=== PATIENT | male | born 1955 | race Caucasian/White ===

== ENCOUNTER 2016-12-01 19:50 | Emergency (ER) | payer MEDICARE ==
[2016-12-01 20:09] LABS: #Basophils 0.1 thou/uL (0.0-0.2); #Eosinphils 0.2 thou/uL (0.0-0.7); #Lymphocytes 2.4 thou/uL (1.20-3.40); #Monocytes 0.5 thou/uL (0.11-0.59); #Neutrophils 2.8 thou/uL (1.40-6.50); %Basophils 1.2 % (0.0-1.0); %Eosinophils 2.7 % (0.0-10.0); %Monocytes 8.5 % (0.0-10.0); Hematocrit 37.8 % (42.0-52.0); Mean Platelet Volume 6.4 fL (7.4-10.4); Red Blood Cell (RBC) Count 3.79 mill/uL (4.70-6.10); White Blood Cell (WBC) Count 5.9 thou/uL (4.8-10.8)
[2016-12-01 20:16] LABS: PTT 25.9 SEC (22.9-36.1); Prothrombin Time 14.5 SEC (12.0-14.7)
--- NOTE | 2016-12-01 20:23 | RAD ---
AP VIEW OF THE CHEST: 12/01/16 INDICATION: Altered mental status, history of seizures and alcohol intake. COMPARISON: Prior exam dated 08/10/16. FINDINGS: Emphysema is stable. Healed fracture deformity involving the posterior right fourth and fifth ribs a re stable. No acute osseous abnormality is evident. IMPRESSION: No acute cardiopulmonary abnormality. POS: [facility]
[2016-12-01 20:30] LABS: Acetaminophen Less than 6.0 mcg/mL (10.0-30.0); Salicylate Less than 8.0 mg/dL (15.0-30.0)
--- NOTE | 2016-12-01 20:30 | CT ---
NONCONTRAST CT OF THE BRAIN 12/01/16 INDICATION: Altered mental status, possible stroke. Left sided deficits; nonpurposeful movement of the left extr emities. COMPARISON: Prior exam dated 08/10/16. FINDINGS: No acute infarct, hemorrhage or hydrocephalus is present. There is stable remote appearing infarct i nvolving the right MCA distribution. There is mild chronic small vessel white matter ischemic change . Septum pellucidum and third ventricle are midline. Skull and extracranial soft tissues are within normal limits. There is mild mucosal thickening within the ethmoid air cells. IMPRESSION: 1. No acute intracranial abnormality. 2. Remote appearing right MCA distribution infarct is stable to the prior. 3. Mild paranasal sinus disease. POS: [facility]
[2016-12-01 20:35] LABS: Troponin I Less than 0.010 ng/mL (< 0.028)
[2016-12-01 20:38] LABS: ALT (SGPT) 17 U/L (8-55); AST (SGOT) 23 U/L (5-34); Alkaline Phosphatase 84 U/L (40-150); Anion Gap 18 mmol/L (10-20); BUN (Urea Nitrogen) 7 mg/dL (8.4-25.7); Bilirubin, Total 0.3 mg/dL (0.2-1.2); CK (CPK) 32 U/L (30-200); Calc. Creatinine Clearance 0 mL/min (70-130); Calcium 8.4 mg/dL (7.8-10.44); Carbon Dioxide 19 mmol/L (23-31); Chloride 99 mmol/L (98-107); Estimated GFR-MDRD Greater than 90; Globulin 3.5 g/dL (2.4-3.5); Protein, Total 7.2 g/dL (5.8-8.1)
== END 2016-12-01 21:55 | disposition home or self-care (01) ==
LOC: ERS 19:50
DX: R56.9 Unspecified convulsions (principal); F17.210 Nicotine dependence, cigarettes, uncomplicated; Z86.73 Personal history of transient ischemic attack (TIA), and cerebral infarction without residual deficits
CPT/HCPCS: 36415; 36416; 70450; 71010; 80053; 80307; 82550; 82553; 84484; 85025; 85610; 85730; 93005

== ENCOUNTER 2018-10-21 21:15 | Observation (INO) | payer MEDICARE ==
[2018-10-21 22:58] LABS: Troponin I Less than 0.010 ng/mL (< 0.028)
[2018-10-22] MEDS ORDERED: Ondansetron PF 4 MG/2 ML Vial IVP PRN (00:06)
[2018-10-22] MEDS ORDERED: Acetaminophen 325 MG TAB PO PRN (00:06)
[2018-10-22] MEDS ORDERED: Ondansetron ODT 4 MG TAB SL PRN (00:06)
[2018-10-22 00:11] VITALS: BMI 21.1
[2018-10-22] MEDS ORDERED: Nitroglycerin 0.4 MG TAB (25 Tab Bottle) PO PRN (00:51)
[2018-10-22] MEDS ORDERED: Lorazepam 0.5 MG TAB PO PRN (00:55)
[2018-10-22] MEDS ORDERED: Sodium Chloride 0.9% 1,000 ML IV SCH (01:00)
[2018-10-22] MEDS ORDERED: levETIRAcetam 500 mg/5 ml Oral Solution PO SCH ×2 (01:00→09:00)
--- NOTE | 2018-10-22 01:53 | HP ---
CHIEF COMPLAINT: Chest pain. HISTORY OF PRESENT ILLNESS: The patient is a pleasant 63-year-old male with past medical history significant for remote MO approximately 10 years ago, unknown type, prior CVA x2 with resulting seizure disorder and mild left-sided weakness, two pack per day current smoking habit and ongoing COPD, and chronic alcoholism, who presented to the [place] [facility] with complaints of chest discomfort. The patient states that he had been out working on his truck and came inside when his symptoms began. He describes discomfort in the center of his chest with radiation to the back. Associated symptoms included nausea. He had no associated shortness of breath, dizziness, or palpitations. He states his symptoms lasted for about 30 minutes. His called EMS, who drove him to the nearest emergency department. Workup in [place] included chest x-ray, which was negative for acute cardiopulmonary process. His initial troponin was negative. EKG showed no acute ST or T-wave changes. Labwork significant for sodium level of 128, which patient has had on previous visits. The patient cannot recall if his CP resolved on its own or if he was given something by EMS that relieved his pain. The patient does state that he had an MO after his first stroke, which occurred approximately 10 years ago. He does not remember the circumstances surrounding his MO or if he saw a assistant associate professor at that time. The patient is currently not on aspirin as he stopped it on his own. He is not currently on a statin medication. REVIEW OF SYSTEMS: A 12-point review of systems performed is negative except that stated above. PAST MEDICAL HISTORY: Hypertension, COPD with ongoing two pack per day smoking habit, CVA x2 with residual left-sided weakness and seizure disorder, chronic alcoholism and history of hyponatremia, history of GI bleed on Plavix. PAST SURGICAL HISTORY: Esophageal diverticulum fixation/repair, tongue biopsy which was benign. SOCIAL HISTORY: The patient reports that he drinks 6-9 beers per day. He denies any illicit drug use. He does currently smoke two packs per day of cigarettes and has smoked for the past 30 years. He lives with his in [place]. He has been for about 25 years, he states. He has children from previous marriage. FAMILY HISTORY: No history of MO, diabetes, or coronary artery disease in first-degree relatives. ALLERGIES: NO KNOWN DRUG ALLERGIES. MEDICATIONS: 1. Keppra 750 mg p.o. b.i.d. 2. Lisinopril 5 mg daily. PRIMARY CARE PHYSICIAN: Dr. Mary in [place]. PHYSICAL EXAMINATION: VITAL SIGNS: Blood pressure is 161/75, pulse is 52, O2 saturation is 98% on room air, temperature is 97.7. GENERAL: This patient is a thin male, resting comfortably in bed, in no acute distress. He does appear older than his stated age. HEENT: Head is atraumatic and normocephalic. Mucous membranes are moist. NECK: Trachea is midline. No JVD. CV: S1 and S2. No appreciable murmurs, rubs, or gallops. Regular rate and rhythm. LUNGS: Occasional rhonchi, no appreciable wheezes or crackles. Regular respiratory rate and pattern, overall decreased vesicular breath sounds bilaterally. ABDOMEN: Positive bowel sounds. Soft, nontender. EXTREMITIES: No edema. SKIN: Warm and dry. NEUROLOGIC: The patient has some residual left-sided weakness from previous CVA. No new deficits. LABORATORY DATA: White blood cell count is 7, hemoglobin 12.4, hematocrit 34.8, platelet count is 222. Sodium 128, potassium 3.9, carbon dioxide 19, BUN 8, creatinine 0.82. Troponin negative x2. AST 25, ALT 11, alkaline phosphatase 54. ASSESSMENT: 1. Chest pain in a patient with numerous risk factors including hypertension, tobacco abuse and previous myocardial infarction, acute coronary syndrome ruled out. 2. Previous myocardial infarction, unknown type. 3. History of cerebrovascular accident x2. 4. Chronic alcoholism. 5. 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 6. Chronic obstructive pulmonary disease with ongoing tobacco abuse, currently two pack per day habit. 7. Hypertension. 8. History of gastrointestinal bleed on Plavix. PLAN: Given the patient's risk factors, we will further risk stratify the patient with nuclear stress test to be performed tomorrow. We will provide gentle IV fluid resuscitation and recheck BMP in the morning. We will also check a fasting lipid panel. Given the patient's previous history of CVA and MO, I have restarted the patient's daily aspirin and statin medication. The patient has no contraindications to these medications that I can see and he does state that he was tolerating his aspirin before he stopped it on his own. I have added thiamine supplementation , as well as p.r.n. Ativan. Further recommendations based on findings of noninvasive testing. Job ID: [id number] [facility]
[2018-10-22 02:02] LABS: Troponin I Less than 0.010 ng/mL (< 0.028)
[2018-10-22 04:37] LABS: Anion Gap 14 mmol/L (10-20); BUN (Urea Nitrogen) 6 mg/dL (8.4-25.7); Calc. Creatinine Clearance 86 mL/min (70-130); Calcium 8.8 mg/dL (7.8-10.44); Carbon Dioxide 20 mmol/L (23-31); Cardiac Risk 3.2 (Less than 4.5); Chloride 100 mmol/L (98-107); Cholesterol 164 mg/dl (< 200 Desired); Estimated GFR-MDRD Greater than 90; Glucose 80 mg/dL (80-115); HDL Cholesterol 52 mg/dL (>60 Neg Risk); LDL Cholesterol, Calculated 89 mg/dL; Potassium 3.9 mmol/L (3.5-5.1); Sodium 130 mmol/L (136-145); Triglycerides 116 mg/dL (Less than 150)
[2018-10-22] MEDS ORDERED: LEVETIRACETAM 750 MG PO SCH (09:00)
[2018-10-22] MEDS ORDERED: Lisinopril 5 MG TAB PO SCH (09:00)
[2018-10-22] MEDS ORDERED: Thiamine 100 MG TAB PO SCH (09:00)
[2018-10-22] MEDS ORDERED: Aspirin 81 mg Enteric Coated Tablet PO SCH (09:00)
[2018-10-22 12:14] VITALS: BP 180/77; TEMP 98.3
[2018-10-22] MEDS ORDERED: Regadenoson 0.4 MG/5 ML SYRINGE ONE (13:54)
--- NOTE | 2018-10-22 14:17 | NM ---
MYOCARDIAL PERFUSION SCAN: The patient was given 10 mCi of Technetium sestamibi for rest imaging and 31 mCi for stress imaging. INDICATION: Chest pain. The patient was stressed according to LexiScan protocol. The left ventricle was imaged with SPECT imaging with CT attenuation. FINDINGS: There is symmetric activity seen on both stress and rest images. There is loss of activity I the sep nura on both stress and rest images. Wall motion appears normally maintained. Ejection fraction is recorded at 69%. IMPRESSION: No evidence of reversible ischemia. POS: [facility]
[2018-10-22] MEDS ORDERED: Atorvastatin Calcium 20 MG TAB PO SCH (21:00)
== END 2018-10-22 14:56 | disposition home or self-care (01) ==
LOC: ERS 21:15 → 2SW 23:57
PROVIDERS: ADMIT Internal Medicine; ATTEND Internal Medicine
DX: R07.89 Other chest pain (principal); I25.2 Old myocardial infarction; I69.354 Hemiplegia and hemiparesis following cerebral infarction affecting left non-dominant side; F10.20 Alcohol dependence, uncomplicated; E87.1 Hypo-osmolality and hyponatremia; J44.9 Chronic obstructive pulmonary disease, unspecified; I10 Essential (primary) hypertension; G40.909 Epilepsy, unspecified, not intractable, without status epilepticus; F17.210 Nicotine dependence, cigarettes, uncomplicated; Z79.899 Other long term (current) drug therapy
CPT/HCPCS: 78452; 80048; 80061; 84484 ×2; 93017; 96360; 96361; 99285; A9500; G0378 ×2; 36415; J2785

== ENCOUNTER 2019-09-24 19:25 | Observation (INO) | payer MEDICARE ==
[~2019-09-24 19:25] MED LIST: Iopamidol-370 76% 500 ML 1 ML ONE
[2019-09-24 19:41] LABS: #Basophils 0.1 thou/uL (0.0-0.2); #Eosinphils 0.1 thou/uL (0.0-0.7); #Lymphocytes 2.9 thou/uL (1.20-3.40); #Monocytes 0.6 thou/uL (0.11-0.59); #Neutrophils 3.1 thou/uL (1.40-6.50); %Basophils 1.3 % (0.0-1.0); %Lymphocytes 42.5 % (21.0-51.0); %Monocytes 8.2 % (0.0-10.0); %Neutrophils 46.1 % (42.0-75.0); Hemoglobin 13.8 g/dL (14.0-18.0); Mean Corpuscular HGB CONC 35.9 g/dL (32.0-36.0); Mean Corpuscular Hemoglobin 34.4 pg (27.0-31.0); Mean Corpuscular Volume 95.8 fL (78.0-98.0); Platelet Count 205 thou/uL (130-400); RBC Distribution Width 11.3 % (11.5-14.5); Red Blood Cell (RBC) Count 4.01 mill/uL (4.70-6.10); White Blood Cell (WBC) Count 6.7 thou/uL (4.8-10.8)
--- NOTE | 2019-09-24 19:47 | CT ---
CT HEAD WITHOUT CONTRAST: 09/24/19 INDICATIONS: Stroke protocol. Left side paralysis with aphasia. COMPARISON: Comparisons made to prior CT of 12/01/16. FINDINGS: Ventricles have normal size and position. Large area of encephalomalacia in the right cerebral hemisphere again noted involving the right tempo ral and frontal lobe consistent with an old infarct. This is stable from 2017. No evidence of acute cortical infarct. No mass, hemorrhage, or edema identified. Mild chronic ischemi c white matter changes. IMPRESSION: No evidence of acute process. Findings were relayed to Dr. Mcdermott at 7:37 p.m. POS: [facility]
[2019-09-24 19:48] LABS: INR-International Normal Ratio 1.1; PTT 26.3 sec (22.9-36.1); Prothrombin Time 14.1 sec (12.0-14.7)
[2019-09-24 19:55] LABS: ALT (SGPT) 10 U/L (8-55); AST (SGOT) 20 U/L (5-34); Albumin 3.9 g/dL (3.4-4.8); Alkaline Phosphatase 51 U/L (40-110); Anion Gap 13 mmol/L (10-20); BUN (Urea Nitrogen) 7 mg/dL (8.4-25.7); Bilirubin, Total 0.3 mg/dL (0.2-1.2); CK (CPK) 46 U/L (30-200); Calc. Creatinine Clearance 0 mL/min (70-130); Calcium 8.9 mg/dL (7.8-10.44); Carbon Dioxide 23 mmol/L (23-31); Chloride 100 mmol/L (98-107); Estimated GFR-MDRD Greater than 90; Globulin 3.4 g/dL (2.4-3.5); Glucose 85 mg/dL (80-115); Potassium 3.8 mmol/L (3.5-5.1); Protein, Total 7.3 g/dL (5.8-8.1); Sodium 132 mmol/L (136-145)
[2019-09-24 20:07] LABS: Acetaminophen Less than 6.0 mcg/mL (10.0-30.0); Alcohol 150 mg/dL (Less than 10); Salicylate Less than 8.0 mg/dL (15.0-30.0)
[2019-09-24 20:12] LABS: Bilirubin Negative (Negative); Blood, Urine Negative (Negative); Clarity Clear (Clear); Glucose, Urine (Dipstick) Normal (Negative); Ketone, Urine Negative (Negative); Leukocyte Negative Leu/uL (Negative); Nitrite Negative (Negative); Protein, Urine (Dipstick) Negative (Neg-Trace); Specific Gravity, Urine 1.007 (1.002-1.036); Urobilinogen Normal mg/dL (Less than 2)
--- NOTE | 2019-09-24 20:17 | CT ---
CTA HEAD WITH CONTRAST: 09/24/19 Axial tomograms obtained following angio protocol with multiplanar reconstructions and 3D postprocess ing. INDICATIONS: Stroke protocol. New left sided weakness. FINDINGS: The intracranial internal carotid arteries are patent and symmetric. The anterior cerebral arteries are patent and symmetric. M1 segment of both middle cerebral arteries are patent and symmetric. Ther e is a large area of encephalomalacia in the right cerebral hemisphere indicating a remote right MCA territory infarct. There is no evidence of proximal or major branch occlusion on the right. The right M2 and M3 branches are decreased in the parasylvian region. Basilar arteries are patent. Both posterior cerebral arteries appear patent and symmetric. IMPRESSION: No evidence of proximal cerebral artery stenosis or occlusion. CTA NECK: Axial tomograms obtained with multiplanar reconstruction and 3D postprocessing. INDICATIONS: Stroke protocol. FINDINGS: No evidence of stenosis at the origin of the arch vessels. Both common carotid arteries are patent an d symmetric. Mild atherosclerotic change seen at the bulbs bilaterally; however, there is no stenosis seen in either internal carotid artery. Vertebral arteries are both patent. There is a mildly domina nt left vertebral. IMPRESSION: Unremarkable CTA neck. POS: [facility]
[2019-09-24 20:21] LABS: Amphetamine Not Detected (NotDetected); Barbiturates Screen Not Detected (NotDetected); Benzodiazepine Screen Not Detected (NotDetected); Cocaine Metabolite Screen Not Detected (NotDetected); Medtox Control Line Valid? VALID (VALID); Medtox Reader # READER 4; Methadone Not Detected (NotDetected); Methamphetamine Not Detected (NotDetected); Opiate Screen Not Detected (NotDetected); Oxycodone Screen Not Detected (NotDetected); Phencyclidine (PCP) Not Detected (NotDetected); THC/Cannabinoid Screen Not Detected (NotDetected); Tricyclic Screen Not Detected (NotDetected)
[2019-09-24] MEDS ORDERED: Aspirin Chewable 81 MG TAB ONE (21:23)
[2019-09-24 23:05] VITALS: BMI 22.1
[2019-09-25] MEDS ORDERED: Diazepam 5 MG TAB PO PRN (01:54)
[2019-09-25] MEDS ORDERED: Thiamine HCl 200 MG/2 ML VIAL IM SCH (02:00)
[2019-09-25] MEDS ORDERED: Diazepam 5 MG TAB PO SCH (02:00)
--- NOTE | 2019-09-25 02:46 | HP ---
TIME OF ASSESSMENT: 0100 hours. PRIMARY CARE PHYSICIAN: DAVID Stein. CHIEF COMPLAINT: Left-sided weakness. HISTORY OF PRESENT ILLNESS: Mr. Burroughs is a 64-year-old gentleman who presented to the emergency department yesterday evening after developing sudden onset of left-sided weakness at approximately 6 p.m. The patient states he had weakness in his left upper extremity and left lower extremity. He states his symptoms began to improve and were nearly resolved by 10:00 p.m. he continues to have some mild residual weakness in the left hand, but it has improved significantly compared to when he first came in. The patient has a history of CVAs in the past and states this was not as bad as previously. He denies any slurred speech or vision changes. No headaches. No dizziness. Has not had any fall. Has not had any issues with his swallowing. ED COURSE: In the emergency department, he underwent an EKG that showed normal sinus rhythm with a heart rate of 62. No ST changes or T-wave abnormalities. He had a CT of the head done showing no evidence of acute process. He has a large area of encephalomalacia in the right cerebral hemisphere involving the right temporal and frontal lobe consistent with an old infarct and appears stable when compared to the imaging done in 2017. He has mild chronic ischemic white matter changes. He underwent a CT angiogram of the head and neck showing no evidence of proximal cerebral artery stenosis or occlusion and an unremarkable evaluation of the neck. LABORATORY STUDIES: Showed white count of 6.7, hemoglobin 13.8, hematocrit 38.4, platelets 205, neutrophils 46.1%. Sodium 132, potassium 3.8, BUN 7, creatinine 0.84, GFR greater than 90. LFTs unremarkable. Troponin negative. CK 46. Urinalysis unremarkable. Urine drug screen negative. Plasma alcohol elevated at 150. In the ED, the patient was given 324 mg of aspirin and admitted for further monitoring and workup. PAST MEDICAL HISTORY: 1. Hypertension. 2. COPD. 3. History of CVA x2. 4. History of NH. 5. History of seizures. 6. Heavy alcohol use. PAST SURGICAL HISTORY: 1. Esophageal pocket surgical fixation. 2. Tongue biopsy, benign. SOCIAL HISTORY: The patient lives at home with family. He drinks every day up to 6 pack a day of beer. Per ED note, he has more than 10 drinks a day. The patient is a smoker and has smoked 1.5 packs per day for the last 30 years. FAMILY HISTORY: Noncontributory. ALLERGIES: NO KNOWN DRUG ALLERGIES. CURRENT MEDICATIONS: 1. Aspirin 81 mg p.o. daily. 2. Keppra 750 mg p.o. twice daily. 3. Albuterol inhaler one puff every 4 hours p.r.n. PHYSICAL EXAMINATION: GENERAL: The patient appears somewhat disheveled, is resting comfortably in bed and is in no acute distress. VITAL SIGNS: Temperature 97.8, pulse 51, respirations 14, O2 saturation 96% on room air, blood pressure 150/76. HEENT: Normocephalic and atraumatic. Pupils are equal, round, and reactive to light. Sclerae icterus. Oropharynx is clear. NECK: Supple. LUNGS: Clear to auscultation bilaterally without any wheezes, rales, or rhonchi. CARDIAC: Regular rate and rhythm. ABDOMEN: Soft, nontender, nondistended. Normoactive bowel sounds present. No guarding or rigidity. No renal angle tenderness. EXTREMITIES: No lower leg swelling or edema. NEUROLOGIC: Alert and oriented x3. Speech is normal. Facial movements and facial sensation intact, mildly reduced strength in the left hand. Otherwise, power is intact as well as sensation in all extremities. Normal coordination. SKIN: Warm and dry. INVESTIGATIONS: As mentioned above in HPI. IMPRESSION AND PLAN: Mr. Burroughs is a 64-year-old gentleman who is being admitted for management of the followin. Cerebrovascular accident rule out. The patient with sudden onset of left-sided weakness and numbness this evening. The patient states symptoms are close to fully resolved, but he has some mild residual weakness involving the left hand. The patient otherwise without complaints at present. Consultation has been placed to neuro and we have ordered an echo as well as an MRI of the brain. Continue to monitor. 2. Hypertension. Monitor blood pressure. 3. History of myocardial infarction. The patient on baby aspirin. This was increased to 325 mg daily given concern for cerebrovascular accident. 4. Seizure disorder. Resume Keppra. We will check Keppra level with morning labs. 5. Chronic obstructive pulmonary disease. We will albuterol, which he takes at home. Monitor O2 saturations. 6. Gastrointestinal prophylaxis with famotidine. 7. Deep venous thrombosis prophylaxis with mechanical sequential compression devices. 8. Code status full. 9. Surrogate decision maker is his , Kelsea Burroughs. The patient's case discussed with attending who agrees with plan of care as described above. Job ID: [id number]
[2019-09-25] MEDS: Sodium Chloride 0.9% 1,000 ML IV SCH ×2 (03:11→21:36)
[2019-09-25 05:21] LABS: #Basophils 0.1 thou/uL (0.0-0.2); #Eosinphils 0.2 thou/uL (0.0-0.7); #Monocytes 0.4 thou/uL (0.11-0.59); #Neutrophils 2.2 thou/uL (1.40-6.50); %Basophils 1.1 % (0.0-1.0); %Eosinophils 4.4 % (0.0-10.0); %Monocytes 8.7 % (0.0-10.0); %Neutrophils 44.8 % (42.0-75.0); Hemoglobin 14.1 g/dL (14.0-18.0); Mean Corpuscular Hemoglobin 33.3 pg (27.0-31.0); Mean Corpuscular Volume 97.8 fL (78.0-98.0); Mean Platelet Volume 6.9 fL (7.4-10.4); Platelet Count 191 thou/uL (130-400); RBC Distribution Width 11.5 % (11.5-14.5); Red Blood Cell (RBC) Count 4.23 mill/uL (4.70-6.10); White Blood Cell (WBC) Count 4.8 thou/uL (4.8-10.8)
[2019-09-25 05:42] LABS: Anion Gap 10 mmol/L (10-20); BUN (Urea Nitrogen) 9 mg/dL (8.4-25.7); Calc. Creatinine Clearance 80 mL/min (70-130); Carbon Dioxide 25 mmol/L (23-31); Cardiac Risk 3.7 (Less than 4.5); Chloride 105 mmol/L (98-107); Cholesterol 164 mg/dl (< 200 Desired); Estimated GFR-MDRD Greater than 90; Glucose 98 mg/dL (80-115); HDL Cholesterol 44 mg/dL (>60 Neg Risk); LDL Cholesterol, Calculated 108 mg/dL; Potassium 4.1 mmol/L (3.5-5.1); Sodium 136 mmol/L (136-145); Triglycerides 62 mg/dL (Less than 150)
[2019-09-25] MEDS: Folic Acid 1 MG TAB PO SCH (09:20)
[2019-09-25] MEDS: levETIRAcetam 500 mg/5 ml Oral Solution PO SCH ×2 (09:20→21:36)
[2019-09-25] MEDS: Aspirin 325 mg Enteric Coated Tablet PO SCH (09:20)
[2019-09-25] MEDS: Multivitamin W/ Minerals 1 TAB PO SCH (09:20)
[2019-09-25] MEDS: Famotidine/PF 20 mg/2ml Vial SLOW IVP SCH ×2 (09:21→21:36)
--- NOTE | 2019-09-25 10:01 | MRI ---
EXAM: MRI of the brain without contrast HISTORY: Left-sided paralysis and ectasia COMPARISON: 08/11/2016 TECHNIQUE: Multiplanar multisequence MR images were obtained of the brain without IV contrast. FINDINGS: There is a stable area of encephalomalacia from prior right MCA distribution infarction within the ri ght temporal lobe and parietal lobe. There are scattered foci of high T2/FLAIR signal in the subcortical and periventricular white matter, likely secondary to small vessel ischemic disease. No restricted diffusion. No hydronephrosis. No extra-axial fluid collection or intracranial hemorrhage. The expected flow voids are present. Corpus callosum, pituitary, and craniocervical junction are within normal limits. The calvarium and overlying soft tissues are unremarkable. The paranasal sinuses and mastoid air cells are well aerated. IMPRESSION: 1. No evidence of acute intracranial abnormality. 2. Remote right MCA distribution infarction
--- NOTE | 2019-09-25 10:47 | PDOC.HOSPP ---
- Subjective Encounter Date: 09/25/19 Encounter Time: 10:45 Subjective: Patient denies any complaints. States he slept well overnight. Has noted complete improvement in the left hand weakness that he was still experiencing when I saw him. - Objective Vital Signs & Weight: Vital Signs (12 hours) Temp Pulse Resp BP Pulse Ox 09/25/19 08:00 97.8 F 53 L 22 H 164/74 H 97 09/25/19 03:39 97.6 F 58 L 18 150/74 H 94 L 09/25/19 00:05 97.4 F L 55 L 16 135/74 94 L Weight Weight 141 lb 1.6 oz I&O: 09/24/19 09/25/19 09/26/19 06:59 06:59 06:59 Intake Total 1054 Output Total 1000 Balance 54 Result Diagrams: 09/25/19 05:11 09/25/19 05:11 Additional Labs: Accuchecks 09/24/19 19:33 POC Glucose 88 Hospitalist ROS - Medication Medications: Active Medications Generic Name Dose Route Start Last Admin Trade Name Freq PRN Reason Stop Dose Admin Aspirin 325 mg 09/25/19 09:00 09/25/19 09:20 Ecotrin PO 325 mg DAILY HANNAH Administration Famotidine 20 mg 09/25/19 09:00 09/25/19 09:21 Pepcid SLOW IVP 20 mg Q12HR HANNAH Administration Folic Acid 1 mg 09/25/19 09:00 09/25/19 09:20 Folvite PO 1 mg DAILY HANNAH Administration Sodium Chloride 1,000 mls @ 65 mls/hr 09/25/19 02:00 09/25/19 03:11 Normal Saline 0.9% IV 1,000 mls .[id number] HANNAH Administration Iron/Minerals/Multivitamins 1 tab 09/25/19 09:00 09/25/19 09:20 Theragran M PO 1 tab DAILY HANNAH Administration Levetiracetam 750 mg 09/25/19 09:00 09/25/19 09:20 Keppra Oral Solution PO 750 mg BID HANNAH Administration Sodium Chloride 10 ml 09/25/19 01:49 09/25/19 09:23 Flush - Normal Saline IVF 10 ml Q12HR PRN Administration Saline Flush
--- NOTE | 2019-09-25 10:49 | PDOC.EVN ---
Event Note - Event Note Event Note: Patient reports residual left hand weakness from earlier this morning has fully improved. He has gotten a lot of rest and denies any complaints at present. S/p MRI brain: Remote right MCA distribution infarction, no acute intracranial abnormality. Seen by Dr. Echeverria this am. Awaiting Echo.
--- NOTE | 2019-09-25 12:47 | CON ---
NEUROLOGY CONSULTATION DATE OF CONSULTATION: 09/25/2019 REASON FOR CONSULTATION: Acute onset left-sided weakness and speech deficit. HISTORY OF PRESENT ILLNESS: Mr. Burroughs is a 64-year-old gentleman who presented to the emergency room because of acute onset left-sided weakness with speech issues and problems with speech around 6 p.m. yesterday on 09/24/2019. His symptoms began to improve and nearly resolved at 10 p.m. but he has mild residual weakness of the left hand which was more than usual from his prior CVA. The patient denies any focal paresthesias, nausea, vomiting, headache, dizziness, vertigo, chest pain, or abdominal pain associated with problems with swallowing associated with this episode. However, he does have some problem with speech. In the emergency room , the EKG was done which showed normal sinus rhythm. He also had a head CT done which was negative for acute intracranial pathology, but did show large area of encephalomalacia in the right cerebral hemisphere involving the right temporal and frontal lobe with an old infarct, which appears to be stable when compared to the prior CT scan in 2017. The patient also underwent CT angiogram of the head and neck, which did not reveal any hemodynamically significant stenosis. Labs were essentially unremarkable. In the emergency room, he was given aspirin and was admitted for further workup. REVIEW OF SYSTEMS: All 10-systems were reviewed and were negative except pertinent positive and negative mentioned in the HPI. PAST MEDICAL HISTORY: Hypertension, COPD, history of cerebrovascular accidents x2, history of multiple SC, history of seizures, and history of alcohol abuse. PAST SURGICAL HISTORY: Esophageal pocket surgical fixation, tongue biopsies. SOCIAL HISTORY: The patient lives at home with his family. Drinks about six packs of beers a day. Also smoked 1.5 packs per day for the last 30 years. FAMILY HISTORY: No family history of stroke. ALLERGIES: NO KNOWN DRUG ALLERGIES. MEDICATION: 1. Aspirin 81 mg daily. 2. Keppra 750 mg twice daily. 3. Albuterol inhaler one puff p.r.n. - Objective Vital Signs & Weight: Vital Signs (12 hours) Temp Pulse Resp BP Pulse Ox 09/25/19 08:00 97.8 F 53 L 22 H 164/74 H 97 09/25/19 03:39 97.6 F 58 L 18 150/74 H 94 L 09/25/19 00:05 97.4 F L 55 L 16 135/74 94 L Weight Weight 141 lb 1.6 oz I&O: 09/24/19 09/25/19 09/26/19 06:59 06:59 06:59 Intake Total 1054 Output Total 1000 Balance 54 Additional Labs: Accuchecks 09/24/19 19:33 POC Glucose 88 Active Medications Generic Name Dose Route Start Last Admin Trade Name Freq PRN Reason Stop Dose Admin Aspirin 325 mg 09/25/19 09:00 09/25/19 09:20 Ecotrin PO 325 mg DAILY HANNAH Administration Famotidine 20 mg 09/25/19 09:00 09/25/19 09:21 Pepcid SLOW IVP 20 mg Q12HR HANNAH Administration Folic Acid 1 mg 09/25/19 09:00 09/25/19 09:20 Folvite PO 1 mg DAILY HANNAH Administration Sodium Chloride 1,000 mls @ 65 mls/hr 09/25/19 02:00 09/25/19 03:11 Normal Saline 0.9% IV 1,000 mls .[id number] HANNAH Administration Iron/Minerals/Multivitamins 1 tab 09/25/19 09:00 09/25/19 09:20 Theragran M PO 1 tab DAILY HANNAH Administration Levetiracetam 750 mg 09/25/19 09:00 09/25/19 09:20 Keppra Oral Solution PO 750 mg BID HANNAH Administration Sodium Chloride 10 ml 09/25/19 01:49 09/25/19 09:23 Flush - Normal Saline IVF 10 ml Q12HR PRN Administration Saline Flush PHYSICAL EXAMINATION: CVS: Regular rate and rhythm. CHEST: Clear. ABDOMEN: Soft. NECK: No carotid bruit. NEUROLOGIC: Mental status, the patient is alert and oriented to person, place, and time. He does have receptive aphasia. Speech is dysarthric. Motor, muscle tone and bulk are normal. Strength is 5/5 bilaterally except left wrist, which is 4+/five. Sensory intact. Cerebellar, finger-nose testing intact. Cranial nerves 2 through 12 are intact except the dysarthria. Gait deferred due to patient's safety reasons. ASSESSMENT AND PLAN: Mr. Glenn Burroughs is consulted for an episode of left-sided weakness, which resolved on its own, most likely transient ischemic attack. Recommend MRI of the brain to rule out acute intracranial process. Recommend 2D echo to evaluate for left ventricular ejection fraction. Permissive control of blood pressure at this time. The patient was on aspirin 81 mg daily. Consider increasing it to 325 mg daily. Continue Keppra for seizure prophylaxis. Neuro checks every 4 hours, telemetry. Continue home medications. Continue medical management per Primary team. Plan discussed with the patient and the floor team during the MDR rounds. Job ID: [id number] [facility]
[2019-09-25] MEDS ORDERED: Atorvastatin Calcium 40 MG TAB PO SCH (21:00)
[2019-09-26] MEDS ORDERED: Diazepam 5 MG TAB PO PRN (04:00)
[2019-09-26 08:23] VITALS: BP 158/75; TEMP 97.2
[2019-09-26] MEDS: Multivitamin W/ Minerals 1 TAB PO SCH (08:58)
[2019-09-26] MEDS: Folic Acid 1 MG TAB PO SCH (08:58)
[2019-09-26] MEDS: Aspirin 325 mg Enteric Coated Tablet PO SCH (08:58)
[2019-09-26] MEDS: Famotidine/PF 20 mg/2ml Vial SLOW IVP SCH (08:59)
[2019-09-26] MEDS ORDERED: Magnesium Oxide 400 MG TAB PO SCH (09:00)
[2019-09-26] MEDS ORDERED: Thiamine 100 MG TAB PO SCH (09:00)
[2019-09-26] MEDS: levETIRAcetam 500 mg/5 ml Oral Solution PO SCH (09:05)
[2019-09-26] MEDS: Sodium Chloride 0.9% 1,000 ML IV SCH (11:22)
--- NOTE | 2019-09-27 05:38 | DIS ---
DATE OF ADMISSION: 09/24/2019 DATE OF DISCHARGE: 09/26/2019 REASON FOR HOSPITALIZATION: Left-sided weakness. PROCEDURES PERFORMED AND TREATMENTS RENDERED: The patient was admitted to the Stroke unit for close management. The patient had all appropriate radiographic and laboratory data for a stroke rule-out, please see full chart for details. The patient had an MRI of the brain. Please see full radiographic report for details. There were signs of old right middle cerebral artery cerebrovascular accident without acute infarction. The patient had an echocardiogram, which shows preserved ejection fraction of 55% with no obvious structural abnormalities. The patient had a CT angiography of the head and neck that was negative for hemodynamically significant stenosis. The patient's laboratory data and metabolic workup were benign. The patient's blood pressure was on the high side, and I recommended starting lisinopril. Lisinopril will have both blood pressure benefits in addition to reducing his chance for future cerebrovascular accidents/thromboembolic events. The patient was started on a regimen of aspirin 325 mg and atorvastatin. The patient was seen and evaluated by Neurology, please see full consultation note for details. Neurology was agreeing with workup and recommended continuing Keppra for seizure prophylaxis as his home medication. The patient was recommended safe for discharge with close followup in the outpatient setting. CONDITION ON DISCHARGE: Stable. SPECIFIC INSTRUCTIONS FOR THE PATIENT/FAMILY: 1. The patient is recommended to follow up with primary care physician in the next 1 to 2 weeks. 2. The patient is recommended to follow up with Neurology in the next 2 to 4 weeks. 3. The patient recommended to take a stroke regimen that was sent to his preferred pharmacy for his convenience. 4. The patient recommended to take all other home medications as directed. Greater than 35 minutes spent coordinating care and discharge process. Job ID: [id number]
== END 2019-09-26 12:06 | disposition home or self-care (01) ==
LOC: ERS 19:25 → INTOOBSV 21:16 → 2SE 21:16
PROVIDERS: ADMIT Internal Medicine; ATTEND Internal Medicine
DX: R53.1 Weakness (principal); I10 Essential (primary) hypertension; J44.9 Chronic obstructive pulmonary disease, unspecified; F17.210 Nicotine dependence, cigarettes, uncomplicated; G40.909 Epilepsy, unspecified, not intractable, without status epilepticus; I25.2 Old myocardial infarction; Z79.82 Long term (current) use of aspirin; Z79.899 Other long term (current) drug therapy; Z86.73 Personal history of transient ischemic attack (TIA), and cerebral infarction without residual deficits
CPT/HCPCS: 36415; 36416; 70450; 70496; 70498; 70551; 80048; 80053; 80061; 80177; 80306; 80307; 81003; 82550; 84484; 85025; 85610; 85730; 93005; 93306; 96374; G0378; J3411; J3475; J3490; Q9967; S0028

== ENCOUNTER 2020-02-26 17:48 | Inpatient (IN) | payer MEDICARE ==
[2020-02-26] MEDS ORDERED: Albuterol 200 PUFF (6.7GM INHALER) INH PRN (19:56)
[2020-02-26] MEDS ORDERED: Acetaminophen 325 MG TAB PO PRN (20:00)
[2020-02-26] MEDS ORDERED: Ondansetron ODT 4 MG TAB SL PRN (20:00)
[2020-02-26] MEDS ORDERED: Ondansetron PF 4 MG/2 ML Vial IVP PRN (20:00)
[2020-02-26] MEDS ORDERED: Albuterol 200 PUFF (6.7GM INHALER) INH SCH (21:00)
[2020-02-26] MEDS ORDERED: Labetalol HCl 100 MG/20 ML VIAL SLOW IVP PRN (21:01)
[2020-02-26] MEDS ORDERED: hydrALAZINE 20 MG/ML VIAL SLOW IVP PRN (21:01)
--- NOTE | 2020-02-26 21:24 | PDOC.HHP ---
Hospitalist HPI - History of Present Illness History of Present Illness: ADMISSION DATE: 02/26/2020 TIME OF ASSESSMENT: 2044 PRIMARY CARE PHYSICIAN: Jace CHIEF COMPLAINT: Shortness of breath HPI: Patient is a 64-year-old male past medical history significant for COPD and hypertension. He presents to the ER today for shortness of breath. He was recently discharged from the hospital last week for COPD exacerbation. He saw his primary care physician on Saturday for similar complaints and was doing better at that time but began to worsen last night with dyspnea coughing. Denies any sputum production, no fever, no known sick contacts, chest pain, GI symptoms, urinary symptoms. ED COURSE: Vital Signs: Blood pressure 126/73, pulse 82, respiratory rate 20, temp 98.0 oral, 98% on 2 L Patient had lab work completed, chest x-ray, EKG, medication administration. He had Zithromax 500 mg IV, aspirin 324 mg oral, magnesium sulfate 2 g IV, Rocephin 1 g IV, Solu-Medrol 125 mg IV, DuoNeb 3 mL. PAST MEDICAL HISTORY: COPD, hypertension, seizure disorder, alcohol abuse, tobacco abuse PAST SURGICAL HISTORY: Esophageal surgery, tongue biopsy SOCIAL HISTORY: Patient lives at home with his and grandson. He currently smokes 4 to 5 cigarettes/day, a few weeks ago he was smoking as much as a few packs per day. He drinks daily and has not had a drink in 24 hours. He has decreased from drinking a sixpack a day to 3 beers a day. He denies any drug use. FAMILY HISTORY: Noncontributory to this day ALLERGIES: No known drug allergies CURRENT MEDICATIONS: Lisinopril 5 mg Aspirin 325 mg Pravastatin 40 mg Albuterol as needed Levetiracetam 750 mg twice a day Hospitalist ROS - Review of Systems Respiratory: reports: cough, shortness of breath All other systems reviewed; all pertinent +/- noted in HPI/Subj - Exam General Appearance: NAD, awake alert General - other findings: Woodall stained from tobacco use ENT: normocephalic atraumatic Neck: supple Heart: RRR, no murmur, no gallops, no rubs, normal peripheral pulses Respiratory: normal chest expansion, no tachypnea, rhonchi Gastrointestinal: soft, non-tender, non-distended, normal bowel sounds Extremities: no edema Neurological: no focal deficits Psychiatric: normal affect, normal behavior, A&O x 3 Hospitalist Results - Labs Lab results: Laboratory Tests 02/26/20 02/26/20 02/26/20 15:11 15:11 15:11 WBC RBC Hgb Hct Sodium 141 Potassium 4.3 BUN 10 Creatinine 0.87 Estimated GFR (MDRD) 88 Glucose 108 Lactic Acid 2.2 Troponin I Less than 0.010 02/26/20 15:11 WBC 8.5 RBC 4.53 L Hgb 14.7 Hct 42.7 Sodium Potassium BUN Creatinine Estimated GFR (MDRD) Glucose Lactic Acid Troponin I - Radiology Interpretation Chest x-ray Status: image reviewed by me, report reviewed by me Additional Comment: Findings: Heart size is normal. Changes of COPD are again seen. Lungs are well-expanded without focal areas of consolidation, pneumothorax, or pleural effusions. Old right-sided rib fractures noted. Impression: No radiographic evidence of acute cardiopulmonary process. Hospitalist H&P A/P - Plan Plan: Acute hypoxic respiratory failure Patient currently on 2 L of oxygen Continue oxygen as needed and wean as tolerated Recent negative Covid test COPD exacerbation Currently on scheduled DuoNebs Continue IV steroids scheduled Continue IV antibiotics Hypertension Resume patient's home antihypertensives As needed antihypertensives available Vital signs every 4 hours Seizure disorder Home medications be resumed once reconciled Tobacco abuse Nicotine patch available Counseling has been provided Alcohol abuse Patient admits to heavy alcohol use in the past Last drink was approximately 1 to 2 days ago Initiate ASE protocol DVT prophylaxis: SCDs CODE STATUS: Full Surrogate decision-maker is his
[2020-02-26] MEDS ORDERED: methylPREDNISolone Sod Succ/PF 125 MG/2 ML VIAL IVP SCH (22:00)
[2020-02-26] MEDS: Bacteriostatic Water 30 ML VIAL FS PRN (23:47)
[2020-02-26] MEDS: methylPREDNISolone Sod Succ 40 MG VIAL IVP SCH (23:53)
[2020-02-27 02:12] LABS: SARS-CoV-2 MS2 Positive; SARS-CoV-2 N Gene Negative; SARS-CoV-2 S Gene Negative; SARS-CoV-2 by NAA Not Detected (NotDetected); SARS-CoV-2 orf1ab Negative
[2020-02-27] MEDS ORDERED: Albuterol 200 PUFF (6.7GM INHALER) INH SCH (02:30)
[2020-02-27 06:22] LABS: #Lymphocytes 0.8 thou/uL (1.20-3.40); #Monocytes 0.1 thou/uL (0.11-0.59); #Neutrophils 7.2 thou/uL (1.40-6.50); %Basophils 0.2 % (0.0-1.0); %Eosinophils 0.1 % (0.0-10.0); %Lymphocytes 10.3 % (21.0-51.0); %Monocytes 0.9 % (0.0-10.0); %Neutrophils 88.5 % (42.0-75.0); Hemoglobin 13.3 g/dL (14.0-18.0); Mean Corpuscular Hemoglobin 32.9 pg (27.0-31.0); Mean Corpuscular Volume 96.6 fL (78.0-98.0); Platelet Count 226 thou/uL (130-400); RBC Distribution Width 10.7 % (11.5-14.5); Red Blood Cell (RBC) Count 4.04 mill/uL (4.70-6.10); White Blood Cell (WBC) Count 8.2 thou/uL (4.8-10.8)
[2020-02-27] MEDS: methylPREDNISolone Sod Succ 40 MG VIAL IVP SCH ×4 (06:23→18:17)
[2020-02-27] MEDS: Bacteriostatic Water 30 ML VIAL FS PRN (06:24)
[2020-02-27 06:34] LABS: Anion Gap 18 mmol/L (10-20); BUN (Urea Nitrogen) 16 mg/dL (8.4-25.7); Calc. Creatinine Clearance 65 mL/min (70-130); Calcium 8.7 mg/dL (7.8-10.44); Carbon Dioxide 17 mmol/L (23-31); Chloride 106 mmol/L (98-107); Glucose 129 mg/dL (80-115); Potassium 4.9 mmol/L (3.5-5.1); Sodium 136 mmol/L (136-145)
[2020-02-27] MEDS: Nicotine 21 MG PATCH TD SCH (10:05)
--- NOTE | 2020-02-27 14:09 | PDOC.HOSPP ---
- Subjective Encounter Date: 02/27/20 Subjective: The patient stated that her shortness of breath is improving. - Objective Vital Signs & Weight: Vital Signs (12 hours) Temp Pulse Resp BP Pulse Ox 02/27/20 11:18 98.0 F 75 18 156/79 H 93 L 02/27/20 08:00 93 L 02/27/20 07:57 98.0 F 67 18 130/77 93 L 02/27/20 04:00 97.9 F 71 18 117/60 92 L Weight Weight 130 lb 3 oz Result Diagrams: 02/27/20 06:11 02/27/20 06:11 Hospitalist ROS - Medication Medications: Active Medications Generic Name Dose Route Start Last Admin Trade Name Freq PRN Reason Stop Dose Admin Methylprednisolone Sodium Succinate 40 mg 02/26/20 23:59 02/27/20 12:57 Methylprednisolone Sod Succ 40 Mg Vial IVP 40 mg Q6HR HANNAH Administration Nicotine 21 mg 02/27/20 09:00 02/27/20 10:05 Nicotine 21 Mg Patch TD Not Given DAILY HANNAH Sterile Water 1 ml 02/26/20 20:00 02/27/20 06:24 Bacteriostatic Water 30 Ml Vial FS 1 ml PRN PRN Administration RECONSTITUTION - Exam General Appearance: awake alert ENT: normocephalic atraumatic Neck: supple, no JVD Heart: RRR Respiratory: normal chest expansion, no tachypnea, wheezes Gastrointestinal: soft Neurological: cranial nerve grossly intact, no new deficit Hosp A/P (1) Acute and chronic respiratory failure with hypoxia Code(s): J96.21 - ACUTE AND CHRONIC RESPIRATORY FAILURE WITH HYPOXIA Status: Acute (2) COPD exacerbation Code(s): J44.1 - CHRONIC OBSTRUCTIVE PULMONARY DISEASE W (ACUTE) EXACERBATION Status: Acute (3) Epilepsy Code(s): G40.909 - EPILEPSY, UNSP, NOT INTRACTABLE, WITHOUT STATUS EPILEPTICUS Status: Chronic (4) TIA (transient ischemic attack) Status: Resolved - Plan The patient is feeling better. He still wheezing on examination. Continue supplemental oxygen as needed. Continue scheduled nebulizer treatments, antibiotics, and corticosteroids.
[2020-02-27] MEDS ORDERED: Acetaminophen 325 MG TAB PO PRN (14:51)
[2020-02-27] MEDS ORDERED: Albuterol Sulfate 1.25 MG/3 ML NEB NEB PRN (14:52)
[2020-02-27] MEDS: cefTRIAXone\\ROCEPHIN 1 GM in Sodium Chloride 0.9% 100 ML IVPB SCH (15:28)
[2020-02-27] MEDS: Azithromycin 500 MG in Sodium Chloride 0.9% 250 ML 250 ML IVPB SCH (16:34)
[2020-02-27] MEDS: Atorvastatin Calcium 40 MG TAB PO SCH (20:47)
[2020-02-27] MEDS: levETIRAcetam 500 MG TAB PO SCH (20:47)
[2020-02-27] MEDS: guaiFENesin ER 600 MG TAB PO SCH (20:48)
[2020-02-28] MEDS: methylPREDNISolone Sod Succ 40 MG VIAL IVP SCH ×3 (00:26→21:36)
[2020-02-28 07:35] LABS: Anion Gap 12 mmol/L (10-20); BUN (Urea Nitrogen) 23 mg/dL (8.4-25.7); Calc. Creatinine Clearance 79 mL/min (70-130); Calcium 8.7 mg/dL (7.8-10.44); Carbon Dioxide 25 mmol/L (23-31); Chloride 104 mmol/L (98-107); Glucose 120 mg/dL (80-115); Potassium 4.3 mmol/L (3.5-5.1); Sodium 137 mmol/L (136-145)
[2020-02-28 07:40] LABS: Band 3 % (5-11); Hemoglobin 13.3 g/dL (14.0-18.0); Lymphocytes 12 % (21-51); MDiff Complete? YES; Mean Corpuscular HGB CONC 34.1 g/dL (32.0-36.0); Mean Corpuscular Hemoglobin 33.1 pg (27.0-31.0); Mean Corpuscular Volume 97.2 fL (78.0-98.0); Mean Platelet Volume 7.1 fL (7.4-10.4); Monocytes 2 % (0-10); Neutrophil 83 % (42-75); Platelet Count 230 thou/uL (130-400); RBC Distribution Width 10.7 % (11.5-14.5); Red Blood Cell (RBC) Count 4.02 mill/uL (4.70-6.10); White Blood Cell (WBC) Count 22.2 thou/uL (4.8-10.8)
[2020-02-28] MEDS: Aspirin 325 mg Enteric Coated Tablet PO SCH (08:00)
[2020-02-28] MEDS: Lisinopril 5 MG TAB PO SCH (08:00)
[2020-02-28] MEDS: Nicotine 21 MG PATCH TD SCH (08:00)
[2020-02-28] MEDS ORDERED: predniSONE 20 MG TAB PO SCH (08:00)
[2020-02-28] MEDS: Magnesium Oxide 400 MG TAB PO SCH (08:00)
[2020-02-28] MEDS: guaiFENesin ER 600 MG TAB PO SCH ×2 (08:01→21:36)
[2020-02-28] MEDS: levETIRAcetam 500 MG TAB PO SCH ×2 (08:01→21:36)
[2020-02-28] MEDS: Multivit, Therapeutic 1 TAB PO SCH (08:02)
[2020-02-28] MEDS: Thiamine 100 MG TAB PO SCH (08:02)
[2020-02-28] MEDS: Folic Acid 1 MG TAB PO SCH (08:03)
[2020-02-28] MEDS: cefTRIAXone\\ROCEPHIN 1 GM in Sodium Chloride 0.9% 100 ML IVPB SCH (14:43)
[2020-02-28] MEDS: Azithromycin 500 MG in Sodium Chloride 0.9% 250 ML 250 ML IVPB SCH (16:29)
--- NOTE | 2020-02-28 17:45 | PDOC.HOSPP ---
- Subjective Encounter Date: 02/28/20 Subjective: Still complaining of SOB wheezing. - Objective Vital Signs & Weight: Vital Signs (12 hours) Temp Pulse Resp BP BP Pulse Ox 02/28/20 15:10 97.6 F 63 16 127/74 94 L 02/28/20 12:00 126/78 02/28/20 11:22 97.7 F 72 18 126/78 93 L 02/28/20 11:06 92 L 02/28/20 08:05 66 02/28/20 08:00 59 L 143/79 H 92 L 02/28/20 07:00 98 F 59 L 16 143/79 H 95 Weight Weight 130 lb 3 oz Result Diagrams: 02/28/20 06:53 02/28/20 06:53 Hospitalist ROS - Medication Medications: Active Medications Generic Name Dose Route Start Last Admin Trade Name Freq PRN Reason Stop Dose Admin Aspirin 325 mg 02/28/20 09:00 02/28/20 08:00 Aspirin 325 Mg Enteric Coated Tablet PO 325 mg DAILY HANNAH Administration Atorvastatin Calcium 40 mg 02/27/20 21:00 02/27/20 20:47 Atorvastatin Calcium 40 Mg Tab PO 40 mg HS HANNAH Administration Folic Acid 1 mg 02/28/20 09:00 02/28/20 08:03 Folic Acid 1 Mg Tab PO 1 mg DAILY HANNAH Administration Guaifenesin 1,200 mg 02/27/20 21:00 02/28/20 08:01 Guaifenesin Er 600 Mg Tab PO 1,200 mg Q12HR HANNAH Administration Azithromycin 500 mg/ Sodium 250 mls @ 250 mls/hr 02/27/20 17:00 02/28/20 16:29 Chloride IVPB 250 mls Q24HR HANNAH Administration Ceftriaxone Sodium 1 gm/ 100 mls @ 200 mls/hr 02/27/20 15:30 02/28/20 14:43 Sodium Chloride IVPB 100 mls Q24HR HANNAH Administration Levetiracetam 750 mg 02/27/20 21:00 02/28/20 08:01 Levetiracetam 500 Mg Tab PO 750 mg BID HANNAH Administration Lisinopril 5 mg 02/28/20 09:00 02/28/20 08:00 Lisinopril 5 Mg Tab PO 5 mg DAILY HANNAH Administration Magnesium Oxide 400 mg 02/28/20 09:00 02/28/20 08:00 Magnesium Oxide 400 Mg Tab PO 400 mg DAILY HANNAH Administration Multivitamins 1 tab 02/28/20 09:00 02/28/20 08:02 Multivit, Therapeutic 1 Tab PO 1 tab DAILY HANNAH Administration Nicotine 21 mg 02/27/20 09:00 02/28/20 08:00 Nicotine 21 Mg Patch TD Not Given DAILY HANNAH Sterile Water 1 ml 02/26/20 20:00 02/27/20 06:24 Bacteriostatic Water 30 Ml Vial FS 1 ml PRN PRN Administration RECONSTITUTION Thiamine HCl 100 mg 02/28/20 09:00 02/28/20 08:02 Thiamine 100 Mg Tab PO 100 mg DAILY HANNAH Administration - Exam General Appearance: awake alert ENT: normocephalic atraumatic Neck: supple Heart: RRR Respiratory: normal chest expansion, no tachypnea, wheezes Neurological: cranial nerve grossly intact, no focal deficits Hosp A/P (1) Acute and chronic respiratory failure with hypoxia Code(s): J96.21 - ACUTE AND CHRONIC RESPIRATORY FAILURE WITH HYPOXIA Status: Acute (2) COPD exacerbation Code(s): J44.1 - CHRONIC OBSTRUCTIVE PULMONARY DISEASE W (ACUTE) EXACERBATION Status: Acute (3) Epilepsy Code(s): G40.909 - EPILEPSY, UNSP, NOT INTRACTABLE, WITHOUT STATUS EPILEPTICUS Status: Chronic (4) TIA (transient ischemic attack) Status: Resolved - Plan Hypoxia is improving. Less wheezing on examination. Continue supplemental oxygen as needed. Continue scheduled nebulizer treatments, antibiotics, and corticosteroids.
[2020-02-28] MEDS: Atorvastatin Calcium 40 MG TAB PO SCH (21:36)
[2020-02-29 05:57] LABS: #Lymphocytes 0.9 thou/uL (1.20-3.40); #Monocytes 0.4 thou/uL (0.11-0.59); #Neutrophils 13.7 thou/uL (1.40-6.50); %Basophils 0.2 % (0.0-1.0); %Lymphocytes 5.9 % (21.0-51.0); %Monocytes 2.5 % (0.0-10.0); %Neutrophils 91.4 % (42.0-75.0); Hemoglobin 13.8 g/dL (14.0-18.0); Mean Corpuscular HGB CONC 33.5 g/dL (32.0-36.0); Mean Corpuscular Hemoglobin 32.8 pg (27.0-31.0); Mean Corpuscular Volume 97.8 fL (78.0-98.0); Mean Platelet Volume 7.2 fL (7.4-10.4); Platelet Count 232 thou/uL (130-400); RBC Distribution Width 10.6 % (11.5-14.5); Red Blood Cell (RBC) Count 4.19 mill/uL (4.70-6.10); White Blood Cell (WBC) Count 14.9 thou/uL (4.8-10.8)
[2020-02-29 06:19] LABS: Anion Gap 11 mmol/L (10-20); BUN (Urea Nitrogen) 27 mg/dL (8.4-25.7); Calc. Creatinine Clearance 73 mL/min (70-130); Carbon Dioxide 27 mmol/L (23-31); Chloride 105 mmol/L (98-107); Glucose 113 mg/dL (80-115); Potassium 5.3 mmol/L (3.5-5.1); Sodium 138 mmol/L (136-145)
[2020-02-29] MEDS: methylPREDNISolone Sod Succ 40 MG VIAL IVP SCH ×2 (08:30→20:55)
[2020-02-29] MEDS: Magnesium Oxide 400 MG TAB PO SCH (08:31)
[2020-02-29] MEDS: levETIRAcetam 500 MG TAB PO SCH ×2 (08:31→20:55)
[2020-02-29] MEDS: Lisinopril 5 MG TAB PO SCH (08:31)
[2020-02-29] MEDS: Folic Acid 1 MG TAB PO SCH (08:31)
[2020-02-29] MEDS: Thiamine 100 MG TAB PO SCH (08:31)
[2020-02-29] MEDS: Nicotine 21 MG PATCH TD SCH (08:32)
[2020-02-29] MEDS: guaiFENesin ER 600 MG TAB PO SCH ×2 (08:32→20:55)
[2020-02-29] MEDS: Aspirin 325 mg Enteric Coated Tablet PO SCH (08:32)
[2020-02-29] MEDS: Multivit, Therapeutic 1 TAB PO SCH (08:32)
--- NOTE | 2020-02-29 10:46 | PDOC.HOSPP ---
- Subjective Encounter Date: 02/29/20 Encounter Time: 10:44 Subjective: feels 'tough'. sob allthe time - Objective Vital Signs & Weight: Vital Signs (12 hours) BP Pulse Ox 02/29/20 08:31 137/75 02/28/20 23:00 93 L Weight Weight 130 lb 3 oz Result Diagrams: 02/29/20 05:32 02/29/20 05:32 Hospitalist ROS - Medication Medications: Active Medications Generic Name Dose Route Start Last Admin Trade Name Alda PRN Reason Stop Dose Admin Aspirin 325 mg 02/28/20 09:00 02/29/20 08:32 Aspirin 325 Mg Enteric Coated Tablet PO 325 mg DAILY HANNAH Administration Atorvastatin Calcium 40 mg 02/27/20 21:00 02/28/20 21:36 Atorvastatin Calcium 40 Mg Tab PO 40 mg HS HANNAH Administration Folic Acid 1 mg 02/28/20 09:00 02/29/20 08:31 Folic Acid 1 Mg Tab PO 1 mg DAILY HANNAH Administration Guaifenesin 1,200 mg 02/27/20 21:00 02/29/20 08:32 Guaifenesin Er 600 Mg Tab PO 1,200 mg Q12HR HANNAH Administration Azithromycin 500 mg/ Sodium 250 mls @ 250 mls/hr 02/27/20 17:00 02/28/20 16:29 Chloride IVPB 250 mls Q24HR HANNAH Administration Levetiracetam 750 mg 02/27/20 21:00 02/29/20 08:31 Levetiracetam 500 Mg Tab PO 750 mg BID HANNAH Administration Lisinopril 5 mg 02/28/20 09:00 02/29/20 08:31 Lisinopril 5 Mg Tab PO 5 mg DAILY HANNAH Administration Magnesium Oxide 400 mg 02/28/20 09:00 02/29/20 08:31 Magnesium Oxide 400 Mg Tab PO 400 mg DAILY HANNAH Administration Methylprednisolone Sodium Succinate 40 mg 02/28/20 21:00 02/29/20 08:30 Methylprednisolone Sod Succ 40 Mg Vial IVP 40 mg Q12HR HANNAH Administration Multivitamins 1 tab 02/28/20 09:00 02/29/20 08:32 Multivit, Therapeutic 1 Tab PO 1 tab DAILY HANNAH Administration Nicotine 21 mg 02/27/20 09:00 02/29/20 08:32 Nicotine 21 Mg Patch TD Not Given DAILY HANNAH Sterile Water 1 ml 02/26/20 20:00 02/27/20 06:24 Bacteriostatic Water 30 Ml Vial FS 1 ml PRN PRN Administration RECONSTITUTION Thiamine HCl 100 mg 02/28/20 09:00 02/29/20 08:31 Thiamine 100 Mg Tab PO 100 mg DAILY HANNAH Administration - Exam General Appearance: awake alert Neck: no JVD Heart: RRR, no murmur Respiratory - other findings: decreased BS, insperatory/expiratory wheezes, diffuse rhonchi Gastrointestinal: soft, normal bowel sounds Extremities: no edema Hosp A/P (1) COPD exacerbation Code(s): J44.1 - CHRONIC OBSTRUCTIVE PULMONARY DISEASE W (ACUTE) EXACERBATION Status: Acute (2) Acute and chronic respiratory failure with hypoxia Code(s): J96.21 - ACUTE AND CHRONIC RESPIRATORY FAILURE WITH HYPOXIA Status: Acute (3) HTN (hypertension) Code(s): I10 - ESSENTIAL (PRIMARY) HYPERTENSION Status: Acute Qualifiers: Hypertension type: essential hypertension Qualified Code(s): I10 - Essential (primary) hypertension (4) Tobacco abuse Code(s): Z72.0 - TOBACCO USE Status: Chronic (5) Epilepsy Code(s): G40.909 - EPILEPSY, UNSP, NOT INTRACTABLE, WITHOUT STATUS EPILEPTICUS Status: Chronic Qualifiers: Epilepsy type: unspecified Intractability: not intractable Status epilepticus: without status epilepticus Qualified Code(s): G40.909 - Epilepsy, unspecified, not intractable, without status epilepticus - Plan cont iv steroids cont nebs cont O2 supplementatio add inhaled LABA selected home meds suspect will be slow to clear no history off outpatient O2
[2020-02-29] MEDS: Azithromycin 500 MG in Sodium Chloride 0.9% 250 ML 250 ML IVPB SCH (17:35)
[2020-02-29] MEDS: Mometasone 200 MCG/Formoterol 5 MCG 120 PUFF INHALER INH SCH (19:12)
[2020-02-29] MEDS: Atorvastatin Calcium 40 MG TAB PO SCH (20:55)
[2020-03-01 06:11] LABS: #Lymphocytes 1.1 thou/uL (1.20-3.40); #Monocytes 0.4 thou/uL (0.11-0.59); #Neutrophils 10.3 thou/uL (1.40-6.50); %Basophils 0.1 % (0.0-1.0); %Lymphocytes 9.6 % (21.0-51.0); %Neutrophils 87.2 % (42.0-75.0); Hemoglobin 13.9 g/dL (14.0-18.0); Mean Corpuscular HGB CONC 32.8 g/dL (32.0-36.0); Mean Corpuscular Hemoglobin 31.8 pg (27.0-31.0); Mean Corpuscular Volume 96.8 fL (78.0-98.0); Mean Platelet Volume 7.6 fL (7.4-10.4); Platelet Count 227 thou/uL (130-400); RBC Distribution Width 10.6 % (11.5-14.5); Red Blood Cell (RBC) Count 4.36 mill/uL (4.70-6.10); White Blood Cell (WBC) Count 11.8 thou/uL (4.8-10.8)
[2020-03-01 06:27] LABS: Anion Gap 9 mmol/L (10-20); BUN (Urea Nitrogen) 23 mg/dL (8.4-25.7); Calc. Creatinine Clearance 89 mL/min (70-130); Calcium 8.8 mg/dL (7.8-10.44); Carbon Dioxide 29 mmol/L (23-31); Chloride 103 mmol/L (98-107); Glucose 108 mg/dL (80-115); Potassium 4.3 mmol/L (3.5-5.1); Sodium 137 mmol/L (136-145)
[2020-03-01] MEDS: Mometasone 200 MCG/Formoterol 5 MCG 120 PUFF INHALER INH SCH (07:09)
--- NOTE | 2020-03-01 08:55 | PDOC.HOSPP ---
- Subjective Encounter Date: 03/01/20 Encounter Time: 08:53 Subjective: less cough, still with marked HERRING - Objective Vital Signs & Weight: Vital Signs (12 hours) Temp Pulse Resp BP BP Pulse Ox 03/01/20 08:18 97.9 F 54 L 20 132/78 92 L 03/01/20 04:00 97.8 F 50 L 20 151/88 H 94 L 03/01/20 00:00 97.9 F 54 L 20 145/83 H 92 L Weight Weight 130 lb 3 oz I&O: 02/29/20 03/01/20 03/02/20 06:59 06:59 06:59 Intake Total 1450 Balance 1450 Result Diagrams: 03/01/20 05:25 03/01/20 05:25 Hospitalist ROS - Medication Medications: Active Medications Generic Name Dose Route Start Last Admin Trade Name Freq PRN Reason Stop Dose Admin Aspirin 325 mg 02/28/20 09:00 02/29/20 08:32 Aspirin 325 Mg Enteric Coated Tablet PO 325 mg DAILY HANNAH Administration Atorvastatin Calcium 40 mg 02/27/20 21:00 02/29/20 20:55 Atorvastatin Calcium 40 Mg Tab PO 40 mg HS HANNAH Administration Folic Acid 1 mg 02/28/20 09:00 02/29/20 08:31 Folic Acid 1 Mg Tab PO 1 mg DAILY HANNAH Administration Guaifenesin 1,200 mg 02/27/20 21:00 02/29/20 20:55 Guaifenesin Er 600 Mg Tab PO 1,200 mg Q12HR HANNAH Administration Azithromycin 500 mg/ Sodium 250 mls @ 250 mls/hr 02/27/20 17:00 02/29/20 17:35 Chloride IVPB 250 mls Q24HR HANNAH Administration Levetiracetam 750 mg 02/27/20 21:00 02/29/20 20:55 Levetiracetam 500 Mg Tab PO 750 mg BID HANNAH Administration Lisinopril 5 mg 02/28/20 09:00 02/29/20 08:31 Lisinopril 5 Mg Tab PO 5 mg DAILY HANNAH Administration Magnesium Oxide 400 mg 02/28/20 09:00 02/29/20 08:31 Magnesium Oxide 400 Mg Tab PO 400 mg DAILY HANNAH Administration Methylprednisolone Sodium Succinate 40 mg 02/28/20 21:00 02/29/20 20:55 Methylprednisolone Sod Succ 40 Mg Vial IVP 40 mg Q12HR HANNAH Administration Mometasone Furoate/Formoterol Fumar 1 puff 02/29/20 18:30 03/01/20 07:09 Mometasone 200 Mcg/Formoterol 5 Mcg 120 Puff Inhaler INH 1 puff BID-RT HANNAH Administration Multivitamins 1 tab 02/28/20 09:00 02/29/20 08:32 Multivit, Therapeutic 1 Tab PO 1 tab DAILY HANNAH Administration Nicotine 21 mg 02/27/20 09:00 02/29/20 08:32 Nicotine 21 Mg Patch TD Not Given DAILY HANNAH Sterile Water 1 ml 02/26/20 20:00 02/27/20 06:24 Bacteriostatic Water 30 Ml Vial FS 1 ml PRN PRN Administration RECONSTITUTION Thiamine HCl 100 mg 02/28/20 09:00 02/29/20 08:31 Thiamine 100 Mg Tab PO 100 mg DAILY HANNAH Administration - Exam General Appearance: awake alert Neck: no JVD Heart: RRR, no murmur Respiratory - other findings: insp/exsp wheezes, rhonchi Gastrointestinal: soft, non-distended, normal bowel sounds Extremities: no edema Hosp A/P (1) COPD exacerbation Code(s): J44.1 - CHRONIC OBSTRUCTIVE PULMONARY DISEASE W (ACUTE) EXACERBATION Status: Acute (2) Acute and chronic respiratory failure with hypoxia Code(s): J96.21 - ACUTE AND CHRONIC RESPIRATORY FAILURE WITH HYPOXIA Status: Acute (3) HTN (hypertension) Code(s): I10 - ESSENTIAL (PRIMARY) HYPERTENSION Status: Acute Qualifiers: Hypertension type: essential hypertension Qualified Code(s): I10 - Essential (primary) hypertension (4) Tobacco abuse Code(s): Z72.0 - TOBACCO USE Status: Chronic (5) Epilepsy Code(s): G40.909 - EPILEPSY, UNSP, NOT INTRACTABLE, WITHOUT STATUS EPILEPTICUS Status: Chronic Qualifiers: Epilepsy type: unspecified Intractability: not intractable Status epilepticus: without status epilepticus Qualified Code(s): G40.909 - Epilepsy, unspecified, not intractable, without status epilepticus - Plan cont iv steroids cont nebs cont O2 supplementatio cont inhaled LABA selected home meds suspect will be slow to clear no history off outpatient O2
[2020-03-01] MEDS: Lisinopril 5 MG TAB PO SCH (09:00)
[2020-03-01] MEDS: Aspirin 325 mg Enteric Coated Tablet PO SCH (09:13)
[2020-03-01] MEDS: levETIRAcetam 500 MG TAB PO SCH ×2 (09:13→21:30)
[2020-03-01] MEDS: Multivit, Therapeutic 1 TAB PO SCH (09:13)
[2020-03-01] MEDS: Magnesium Oxide 400 MG TAB PO SCH (09:13)
[2020-03-01] MEDS: Folic Acid 1 MG TAB PO SCH (09:13)
[2020-03-01] MEDS: Nicotine 21 MG PATCH TD SCH (09:14)
[2020-03-01] MEDS: guaiFENesin ER 600 MG TAB PO SCH ×2 (09:14→21:29)
[2020-03-01] MEDS: methylPREDNISolone Sod Succ 40 MG VIAL IVP SCH ×2 (09:14→21:31)
[2020-03-01] MEDS: Thiamine 100 MG TAB PO SCH (09:14)
[2020-03-01] MEDS: Azithromycin 500 MG in Sodium Chloride 0.9% 250 ML 250 ML IVPB SCH (18:00)
[2020-03-01] MEDS: Atorvastatin Calcium 40 MG TAB PO SCH (21:30)
[2020-03-02] MEDS: Mometasone 200 MCG/Formoterol 5 MCG 120 PUFF INHALER INH SCH ×3 (01:48→19:05)
[2020-03-02 06:34] LABS: #Lymphocytes 1.1 thou/uL (1.20-3.40); #Monocytes 0.4 thou/uL (0.11-0.59); #Neutrophils 8.9 thou/uL (1.40-6.50); %Basophils 0.2 % (0.0-1.0); %Eosinophils 0.2 % (0.0-10.0); %Lymphocytes 10.2 % (21.0-51.0); %Monocytes 4.1 % (0.0-10.0); %Neutrophils 85.4 % (42.0-75.0); Mean Corpuscular HGB CONC 34.2 g/dL (32.0-36.0); Mean Corpuscular Hemoglobin 33.2 pg (27.0-31.0); Mean Platelet Volume 7.8 fL (7.4-10.4); Platelet Count 219 thou/uL (130-400); RBC Distribution Width 10.5 % (11.5-14.5); Red Blood Cell (RBC) Count 4.53 mill/uL (4.70-6.10); White Blood Cell (WBC) Count 10.4 thou/uL (4.8-10.8)
[2020-03-02 07:02] LABS: Anion Gap 13 mmol/L (10-20); BUN (Urea Nitrogen) 21 mg/dL (8.4-25.7); Calc. Creatinine Clearance 89 mL/min (70-130); Calcium 8.7 mg/dL (7.8-10.44); Carbon Dioxide 24 mmol/L (23-31); Chloride 103 mmol/L (98-107); Glucose 110 mg/dL (80-115); Potassium 4.3 mmol/L (3.5-5.1); Sodium 136 mmol/L (136-145)
--- NOTE | 2020-03-02 08:28 | PDOC.HOSPP ---
- Subjective Encounter Date: 03/02/20 Encounter Time: 08:25 Subjective: much less tachycnea, looks more comfortable - Objective Vital Signs & Weight: Vital Signs (12 hours) Temp Pulse Resp BP BP BP Pulse Ox 03/02/20 08:08 98.2 F 61 18 117/75 88 L 03/02/20 08:02 59 L 16 93 L 03/02/20 05:55 92 L 03/02/20 04:00 97.6 F 59 L 18 120/69 120/69 03/02/20 00:00 120/69 Weight Weight 130 lb 3 oz I&O: 03/01/20 03/02/20 03/03/20 06:59 06:59 06:59 Intake Total 1450 1900 Balance 1450 1900 Result Diagrams: 03/02/20 05:48 03/02/20 05:48 Hospitalist ROS - Medication Medications: Active Medications Generic Name Dose Route Start Last Admin Trade Name Freq PRN Reason Stop Dose Admin Aspirin 325 mg 02/28/20 09:00 03/01/20 09:13 Aspirin 325 Mg Enteric Coated Tablet PO 325 mg DAILY HANNAH Administration Atorvastatin Calcium 40 mg 02/27/20 21:00 03/01/20 21:30 Atorvastatin Calcium 40 Mg Tab PO 40 mg HS HANNAH Administration Folic Acid 1 mg 02/28/20 09:00 03/01/20 09:13 Folic Acid 1 Mg Tab PO 1 mg DAILY HANNAH Administration Guaifenesin 1,200 mg 02/27/20 21:00 03/01/20 21:29 Guaifenesin Er 600 Mg Tab PO 1,200 mg Q12HR HANNAH Administration Azithromycin 500 mg/ Sodium 250 mls @ 250 mls/hr 02/27/20 17:00 03/01/20 18:00 Chloride IVPB 250 mls Q24HR HANNAH Administration Levetiracetam 750 mg 02/27/20 21:00 03/01/20 21:30 Levetiracetam 500 Mg Tab PO 750 mg BID HANNAH Administration Lisinopril 5 mg 02/28/20 09:00 03/01/20 09:00 Lisinopril 5 Mg Tab PO 5 mg DAILY HANNAH Administration Magnesium Oxide 400 mg 02/28/20 09:00 03/01/20 09:13 Magnesium Oxide 400 Mg Tab PO 400 mg DAILY HANNAH Administration Methylprednisolone Sodium Succinate 40 mg 02/28/20 21:00 03/01/20 21:31 Methylprednisolone Sod Succ 40 Mg Vial IVP 40 mg Q12HR HANNAH Administration Mometasone Furoate/Formoterol Fumar 1 puff 02/29/20 18:30 03/02/20 08:02 Mometasone 200 Mcg/Formoterol 5 Mcg 120 Puff Inhaler INH 1 puff BID-RT HANNAH Administration Multivitamins 1 tab 02/28/20 09:00 03/01/20 09:13 Multivit, Therapeutic 1 Tab PO 1 tab DAILY HANNAH Administration Nicotine 21 mg 02/27/20 09:00 03/01/20 09:14 Nicotine 21 Mg Patch TD Not Given DAILY HANNAH Sterile Water 1 ml 02/26/20 20:00 02/27/20 06:24 Bacteriostatic Water 30 Ml Vial FS 1 ml PRN PRN Administration RECONSTITUTION Thiamine HCl 100 mg 02/28/20 09:00 03/01/20 09:14 Thiamine 100 Mg Tab PO 100 mg DAILY HANNAH Administration - Exam General Appearance: awake alert Neck: no JVD Heart: RRR, no murmur Respiratory - other findings: inspiratory wheezes dramatically imprved. still has post-basilar wheezes, Gastrointestinal: soft, non-tender, non-distended, normal bowel sounds Extremities: no edema Hosp A/P (1) COPD exacerbation Code(s): J44.1 - CHRONIC OBSTRUCTIVE PULMONARY DISEASE W (ACUTE) EXACERBATION Status: Acute (2) Acute and chronic respiratory failure with hypoxia Code(s): J96.21 - ACUTE AND CHRONIC RESPIRATORY FAILURE WITH HYPOXIA Status: Acute (3) HTN (hypertension) Code(s): I10 - ESSENTIAL (PRIMARY) HYPERTENSION Status: Acute Qualifiers: Hypertension type: essential hypertension Qualified Code(s): I10 - Essentia l (primary) hypertension (4) Tobacco abuse Code(s): Z72.0 - TOBACCO USE Status: Chronic (5) Epilepsy Code(s): G40.909 - EPILEPSY, UNSP, NOT INTRACTABLE, WITHOUT STATUS EPILEPTICUS Status: Chronic Qualifiers: Epilepsy type: unspecified Intractability: not intractable Status epilepticus: without status epilepticus Qualified Code(s): G40.909 - Epilepsy, unspecified, not intractable, without status epilepticus - Plan significant improvement over past 48 hrs cont iv steroids cont nebs cont O2 supplementatio cont inhaled LABA selected home meds suspect will be stable for DC 2-3 dYS no history off outpatient O2
[2020-03-02] MEDS: Multivit, Therapeutic 1 TAB PO SCH (08:30)
[2020-03-02] MEDS: Magnesium Oxide 400 MG TAB PO SCH (08:30)
[2020-03-02] MEDS: levETIRAcetam 500 MG TAB PO SCH ×2 (08:30→21:00)
[2020-03-02] MEDS: Aspirin 325 mg Enteric Coated Tablet PO SCH (08:30)
[2020-03-02] MEDS: Folic Acid 1 MG TAB PO SCH (08:31)
[2020-03-02] MEDS: Lisinopril 5 MG TAB PO SCH (08:31)
[2020-03-02] MEDS: guaiFENesin ER 600 MG TAB PO SCH ×2 (08:31→21:01)
[2020-03-02] MEDS: Thiamine 100 MG TAB PO SCH (08:31)
[2020-03-02] MEDS: methylPREDNISolone Sod Succ 40 MG VIAL IVP SCH ×2 (08:32→21:02)
[2020-03-02] MEDS: Nicotine 21 MG PATCH TD SCH (08:32)
[2020-03-02] MEDS: Azithromycin 500 MG in Sodium Chloride 0.9% 250 ML 250 ML IVPB SCH (16:34)
[2020-03-02] MEDS: Atorvastatin Calcium 40 MG TAB PO SCH (21:01)
[2020-03-03 06:38] LABS: #Lymphocytes 1.3 thou/uL (1.20-3.40); #Monocytes 0.5 thou/uL (0.11-0.59); #Neutrophils 8.3 thou/uL (1.40-6.50); %Basophils 0.2 % (0.0-1.0); %Eosinophils 0.1 % (0.0-10.0); %Lymphocytes 12.9 % (21.0-51.0); %Monocytes 4.8 % (0.0-10.0); %Neutrophils 81.9 % (42.0-75.0); Hemoglobin 15.3 g/dL (14.0-18.0); Mean Corpuscular HGB CONC 33.3 g/dL (32.0-36.0); Mean Corpuscular Hemoglobin 32.4 pg (27.0-31.0); Mean Corpuscular Volume 97.5 fL (78.0-98.0); Mean Platelet Volume 7.9 fL (7.4-10.4); Platelet Count 228 thou/uL (130-400); RBC Distribution Width 10.5 % (11.5-14.5); Red Blood Cell (RBC) Count 4.72 mill/uL (4.70-6.10); White Blood Cell (WBC) Count 10.2 thou/uL (4.8-10.8)
[2020-03-03 07:12] LABS: Anion Gap 11 mmol/L (10-20); BUN (Urea Nitrogen) 25 mg/dL (8.4-25.7); Calc. Creatinine Clearance 83 mL/min (70-130); Calcium 8.6 mg/dL (7.8-10.44); Carbon Dioxide 27 mmol/L (23-31); Chloride 102 mmol/L (98-107); Glucose 105 mg/dL (80-115); Potassium 4.4 mmol/L (3.5-5.1); Sodium 136 mmol/L (136-145)
[2020-03-03] MEDS: Mometasone 200 MCG/Formoterol 5 MCG 120 PUFF INHALER INH SCH ×2 (08:20→18:57)
[2020-03-03] MEDS: Aspirin 325 mg Enteric Coated Tablet PO SCH (08:55)
[2020-03-03] MEDS: levETIRAcetam 500 MG TAB PO SCH ×2 (08:55→20:07)
[2020-03-03] MEDS: guaiFENesin ER 600 MG TAB PO SCH ×2 (08:55→20:07)
[2020-03-03] MEDS: Folic Acid 1 MG TAB PO SCH (08:56)
[2020-03-03] MEDS: Thiamine 100 MG TAB PO SCH (08:56)
[2020-03-03] MEDS: Multivit, Therapeutic 1 TAB PO SCH (08:56)
[2020-03-03] MEDS: Lisinopril 5 MG TAB PO SCH (08:56)
[2020-03-03] MEDS: Magnesium Oxide 400 MG TAB PO SCH (08:56)
[2020-03-03] MEDS: methylPREDNISolone Sod Succ 40 MG VIAL IVP SCH ×2 (08:57→20:08)
[2020-03-03] MEDS: Nicotine 21 MG PATCH TD SCH (08:57)
--- NOTE | 2020-03-03 14:02 | PDOC.HOSPP ---
- Subjective Encounter Date: 03/03/20 Subjective: The patient is still requiring oxygen. He is not appear to be in any distress. - Objective Vital Signs & Weight: Vital Signs (12 hours) Temp Pulse Resp BP BP Pulse Ox 03/03/20 08:30 97.4 F L 52 L 20 114/78 95 03/03/20 08:00 114/78 95 03/03/20 04:00 97.5 F L 55 L 20 106/70 95 Weight Weight 130 lb 3 oz I&O: 03/02/20 03/03/20 03/04/20 06:59 06:59 06:59 Intake Total 1899 1909 360 Balance 1899 1909 360 Result Diagrams: 03/03/20 06:11 03/03/20 06:11 Hospitalist ROS - Medication Medications: Active Medications Generic Name Dose Route Start Last Admin Trade Name Freq PRN Reason Stop Dose Admin Aspirin 325 mg 02/28/20 09:00 03/03/20 08:55 Aspirin 325 Mg Enteric Coated Tablet PO 325 mg DAILY HANNAH Administration Atorvastatin Calcium 40 mg 02/27/20 21:00 03/02/20 21:01 Atorvastatin Calcium 40 Mg Tab PO 40 mg HS HANNAH Administration Folic Acid 1 mg 02/28/20 09:00 03/03/20 08:56 Folic Acid 1 Mg Tab PO 1 mg DAILY HANNAH Administration Guaifenesin 1,200 mg 02/27/20 21:00 03/03/20 08:55 Guaifenesin Er 600 Mg Tab PO 1,200 mg Q12HR HANNAH Administration Azithromycin 500 mg/ Sodium 250 mls @ 250 mls/hr 02/27/20 17:00 03/02/20 16:3 4 Chloride IVPB 250 mls Q24HR HANNAH Administration Levetiracetam 750 mg 02/27/20 21:00 03/03/20 08:55 Levetiracetam 500 Mg Tab PO 750 mg BID HANNAH Administration Lisinopril 5 mg 02/28/20 09:00 03/03/20 08:56 Lisinopril 5 Mg Tab PO 5 mg DAILY HANNAH Administration Magnesium Oxide 400 mg 02/28/20 09:00 03/03/20 08:56 Magnesium Oxide 400 Mg Tab PO 400 mg DAILY HANNAH Administration Methylprednisolone Sodium Succinate 40 mg 02/28/20 21:00 03/03/20 08:57 Methylprednisolone Sod Succ 40 Mg Vial IVP 40 mg Q12HR HANNAH Administration Mometasone Furoate/Formoterol Fumar 1 puff 02/29/20 18:30 03/03/20 08:20 Mometasone 200 Mcg/Formoterol 5 Mcg 120 Puff Inhaler INH 1 puff BID-RT HANNAH Administration Multivitamins 1 tab 02/28/20 09:00 03/03/20 08:56 Multivit, Therapeutic 1 Tab PO 1 tab DAILY HANNAH Administration Nicotine 21 mg 02/27/20 09:00 03/03/20 08:57 Nicotine 21 Mg Patch TD Not Given DAILY HANNAH Sterile Water 1 ml 02/26/20 20:00 02/27/20 06:24 Bacteriostatic Water 30 Ml Vial FS 1 ml PRN PRN Administration RECONSTITUTION Thiamine HCl 100 mg 02/28/20 09:00 03/03/20 08:56 Thiamine 100 Mg Tab PO 100 mg DAILY HANNAH Administration - Exam General Appearance: awake alert ENT: normocephalic atraumatic Neck: supple, no JVD Heart: RRR Respiratory: no tachypnea, rhonchi Gastrointestinal: soft Extremities: no cyanosis Hosp A/P (1) Acute and chronic respiratory failure with hypoxia Code(s): J96.21 - ACUTE AND CHRONIC RESPIRATORY FAILURE WITH HYPOXIA Status: Acute (2) COPD exacerbation Code(s): J44.1 - CHRONIC OBSTRUCTIVE PULMONARY DISEASE W (ACUTE) EXACERBATION Status: Acute (3) Epilepsy Code(s): G40.909 - EPILEPSY, UNSP, NOT INTRACTABLE, WITHOUT STATUS EPILEPTICUS Status: Chronic Qualifiers: Epilepsy type: unspecified Intractability: not intractable Status epilepticus: without status epilepticus Qualified Code(s): G40.909 - Epilepsy, unspecified, not intractable, without status epilepticus (4) TIA (transient ischemic attack) Status: Resolved - Plan Hypoxia is still present. No wheezing on examination but crackles are noted bilaterally. Check chest x-ray. Continue supplemental oxygen as needed. Continue scheduled nebulizer treatments, antibiotics, and corticosteroids.
--- NOTE | 2020-03-03 16:12 | RAD ---
RADIOGRAPH CHEST 1 VIEW: DATE: 03/03/2020 HISTORY: 64-year-old male with hypoxia FINDINGS: There are no airspace densities, pulmonary edema, pneumothorax, or cardiomegaly. The lateral costophr enic angles are sharp. Old right rib fracture deformities. IMPRESSION: No acute cardiopulmonary findings.
[2020-03-03] MEDS: Azithromycin 500 MG in Sodium Chloride 0.9% 250 ML 250 ML IVPB SCH (16:52)
[2020-03-03] MEDS: Atorvastatin Calcium 40 MG TAB PO SCH (20:07)
[2020-03-04 05:53] LABS: #Lymphocytes 1.5 thou/uL (1.20-3.40); #Monocytes 0.7 thou/uL (0.11-0.59); #Neutrophils 10.6 thou/uL (1.40-6.50); %Basophils 0.2 % (0.0-1.0); %Eosinophils 0.1 % (0.0-10.0); %Lymphocytes 11.5 % (21.0-51.0); %Monocytes 5.8 % (0.0-10.0); %Neutrophils 82.4 % (42.0-75.0); Hemoglobin 15.4 g/dL (14.0-18.0); Mean Corpuscular HGB CONC 33.7 g/dL (32.0-36.0); Mean Corpuscular Hemoglobin 32.6 pg (27.0-31.0); Mean Corpuscular Volume 96.8 fL (78.0-98.0); Mean Platelet Volume 7.4 fL (7.4-10.4); Platelet Count 256 thou/uL (130-400); RBC Distribution Width 10.6 % (11.5-14.5); Red Blood Cell (RBC) Count 4.71 mill/uL (4.70-6.10); White Blood Cell (WBC) Count 12.8 thou/uL (4.8-10.8)
[2020-03-04 06:14] LABS: Anion Gap 11 mmol/L (10-20); BUN (Urea Nitrogen) 27 mg/dL (8.4-25.7); Calc. Creatinine Clearance 82 mL/min (70-130); Calcium 8.8 mg/dL (7.8-10.44); Carbon Dioxide 26 mmol/L (23-31); Chloride 101 mmol/L (98-107); Glucose 109 mg/dL (80-115); Potassium 4.5 mmol/L (3.5-5.1); Sodium 133 mmol/L (136-145)
[2020-03-04] MEDS: Mometasone 200 MCG/Formoterol 5 MCG 120 PUFF INHALER INH SCH (07:15)
[2020-03-04 07:37] VITALS: BP 115/74; TEMP 97.8
[2020-03-04] MEDS: Nicotine 21 MG PATCH TD SCH (09:27)
[2020-03-04] MEDS: levETIRAcetam 500 MG TAB PO SCH (09:27)
[2020-03-04] MEDS: guaiFENesin ER 600 MG TAB PO SCH (09:27)
[2020-03-04] MEDS: Magnesium Oxide 400 MG TAB PO SCH (09:27)
[2020-03-04] MEDS: Aspirin 325 mg Enteric Coated Tablet PO SCH (09:28)
[2020-03-04] MEDS: Folic Acid 1 MG TAB PO SCH (09:28)
[2020-03-04] MEDS: Thiamine 100 MG TAB PO SCH (09:28)
[2020-03-04] MEDS: Lisinopril 5 MG TAB PO SCH (09:28)
[2020-03-04] MEDS: Multivit, Therapeutic 1 TAB PO SCH (09:28)
[2020-03-04] MEDS: methylPREDNISolone Sod Succ 40 MG VIAL IVP SCH (09:29)
--- NOTE | 2020-03-04 10:01 | PDOC.HOSPP ---
- Subjective Encounter Date: 03/04/20 Subjective: The patient is resting comfortably. He has no symptoms today. He is saturating 88% on room air. - Objective Vital Signs & Weight: Vital Signs (12 hours) Temp Pulse Resp BP BP Pulse Ox 03/04/20 09:28 64 115/74 03/04/20 07:34 97.8 F 64 20 115/74 03/04/20 05:33 97.9 F 60 16 107/68 94 L Weight Weight 130 lb 3 oz I&O: 03/03/20 03/04/20 03/05/20 06:59 06:59 06:59 Intake Total 1909 1410 Balance 1909 141 Result Diagrams: 03/04/20 05:34 03/04/20 05:34 Hospitalist ROS - Medication Medications: Active Medications Generic Name Dose Route Start Last Admin Trade Name Freq PRN Reason Stop Dose Admin Aspirin 325 mg 02/28/20 09:00 03/04/20 09:28 Aspirin 325 Mg Enteric Coated Tablet PO 325 mg DAILY HANNAH Administration Atorvastatin Calcium 40 mg 02/27/20 21:00 03/03/20 20:07 Atorvastatin Calcium 40 Mg Tab PO 40 mg HS HANNAH Administration Folic Acid 1 mg 02/28/20 09:00 03/04/20 09:28 Folic Acid 1 Mg Tab PO 1 mg DAILY HANNAH Administration Guaifenesin 1,200 mg 02/27/20 21:00 03/04/20 09:27 Guaifenesin Er 600 Mg Tab PO 1,200 mg Q12HR HANNAH Administration Azithromycin 500 mg/ Sodium 250 mls @ 250 mls/hr 02/27/20 17:00 03/03/20 16 :52 Chloride IVPB 250 mls Q24HR HANNAH Administration Levetiracetam 750 mg 02/27/20 21:00 03/04/20 09:27 Levetiracetam 500 Mg Tab PO 750 mg BID HANNAH Administration Lisinopril 5 mg 02/28/20 09:00 03/04/20 09:28 Lisinopril 5 Mg Tab PO 5 mg DAILY HANNAH Administration Magnesium Oxide 400 mg 02/28/20 09:00 03/04/20 09:27 Magnesium Oxide 400 Mg Tab PO 400 mg DAILY HANNAH Administration Methylprednisolone Sodium Succinate 40 mg 02/28/20 21:00 03/04/20 09:29 Methylprednisolone Sod Succ 40 Mg Vial IVP 40 mg Q12HR HANNAH Administration Mometasone Furoate/Formoterol Fumar 1 puff 02/29/20 18:30 03/04/20 07:15 Mometasone 200 Mcg/Formoterol 5 Mcg 120 Puff Inhaler INH 1 puff BID-RT HANNAH Administration Multivitamins 1 tab 02/28/20 09:00 03/04/20 09:28 Multivit, Therapeutic 1 Tab PO 1 tab DAILY HANNAH Administration Nicotine 21 mg 02/27/20 09:00 03/04/20 09:27 Nicotine 21 Mg Patch TD Not Given DAILY HANNAH Sterile Water 1 ml 02/26/20 20:00 02/27/20 06:24 Bacteriostatic Water 30 Ml Vial FS 1 ml PRN PRN Administration RECONSTITUTION Thiamine HCl 100 mg 02/28/20 09:00 03/04/20 09:28 Thiamine 100 Mg Tab PO 100 mg DAILY HANNAH Administration - Exam General Appearance: awake alert ENT: normocephalic atraumatic Heart: RRR Respiratory: normal chest expansion, no tachypnea Extremities: no cyanosis, no clubbing Neurological: cranial nerve grossly intact, no focal deficits Hosp A/P (1) Acute and chronic respiratory failure with hypoxia Code(s): J96.21 - ACUTE AND CHRONIC RESPIRATORY FAILURE WITH HYPOXIA Status: Acute (2) COPD exacerbation Code(s): J44.1 - CHRONIC OBSTRUCTIVE PULMONARY DISEASE W (ACUTE) EXACERBATION Status: Acute (3) Epilepsy Code(s): G40.909 - EPILEPSY, UNSP, NOT INTRACTABLE, WITHOUT STATUS EPILEPTICUS Status: Chronic Qualifiers: Epilepsy type: unspecified Intractability: not intractable Status epilepticus: without status epilepticus Qualified Code(s): G40.909 - Epilepsy, unspecified, not intractable, without status epilepticus (4) TIA (transient ischemic attack) Status: Resolved - Plan The patient COPD exacerbation has now resolved. Chest x-ray appears to be clear. He is still hypoxic at baseline will likely require home O2. We will attempt ambulating O2 study today and if we are able to arrange for O2, we will discharge him home.
--- NOTE | 2020-03-04 11:54 | PDOC.DS.DS ---
Provider - Provider Date of Admission: 02/28/20 10:03 Date of Discharge: 03/04/20 Admitting Provider: James Ryan DO Primary Care Physician: Ludmila Mccormick MD Course - Hospital Course Hospital Course: The patient is a 64-year-old male with past medical history of COPD and hypertension who presented to the ER with complaints of shortness of breath and productive cough. He was admitted to the hospital with impression of COPD exacerbation and was managed with scheduled nebulizer treatments, antibiotics, and corticosteroids leading to improvement of his symptoms and resolution of hypoxia prior to discharge. Resuscitation Status: 02/26/20 20:33 Resuscitation Status Routine Co-Sign Provider: Resuscitation Status: FULL: Full Resuscitation Discussed with: pt - Labs Lab Results: 03/04/20 05:34 03/04/20 05:34 Abnormal Lab Results - Last 48 hrs 03/03/20 06:11: MCH 32.4 H, RDW 10.5 L, Neutrophils % 81.9 H, Lymphocytes % 12.9 L, Neutrophils # 8.3 H 03/04/20 05:34: Sodium 133 L, BUN 27 H 03/04/20 05:34: WBC 12.8 H, MCH 32.6 H, RDW 10.6 L, Neutrophils % 82.4 H, Lymphocytes % 11.5 L, Neutrophils # 10.6 H, Monocytes # 0.7 H - Physical Exam Vitals: Vital Signs (12 hours) Temp Pulse Resp BP BP Pulse Ox 03/04/20 09:28 64 115/74 03/04/20 08:21 115/74 94 L 03/04/20 07:34 97.8 F 64 20 115/74 03/04/20 05:33 97.9 F 60 16 107/68 94 L Weight Weight 130 lb 3 oz Physical Exam: The patient was seen and examined on the day of discharge. Problem - Problem (1) Acute and chronic respiratory failure with hypoxia Code(s): J96.21 - ACUTE AND CHRONIC RESPIRATORY FAILURE WITH HYPOXIA Status: Acute (2) COPD exacerbation Code(s): J44.1 - CHRONIC OBSTRUCTIVE PULMONARY DISEASE W (ACUTE) EXACERBATION Status: Acute (3) Epilepsy Code(s): G40.909 - EPILEPSY, UNSP, NOT INTRACTABLE, WITHOUT STATUS EPILEPTICUS Status: Chronic Qualifiers: Epilepsy type: unspecified Intractability: not intractable Status epilepticus: without status epilepticus Qualified Code(s): G40.909 - Epilepsy, unspecified, not intractable, without status epilepticus (4) TIA (transient ischemic attack) Status: Resolved Plan - Discharge Medications Home Medications: Medication Instructions Recorded Confirmed Type levETIRAcetam [Levetiracetam] 750 mg PO BID 10/22/18 02/27/20 History Acetaminophen [Tylenol Regular 650 mg PO Q4H PRN tab 02/16/20 02/27/20 Rx Strength] Albuterol Sulfate [Proventil Hfa] 1 puff INH Q4H PRN 30 Days #1 aer 02/16/20 02/27/20 Rx Aspirin [Ecotrin Regular Strength] 325 mg PO DAILY 30 Days #30 tab 02/16/20 02/27/20 Rx Atorvastatin Calcium [Lipitor] 40 mg PO HS 30 Days #30 tab 02/16/20 02/27/20 Rx Folic Acid [Folvite] 1 mg PO DAILY #30 tab 02/16/20 02/27/20 Rx Lisinopril 5 mg PO DAILY #30 tablet 02/16/20 02/27/20 Rx Magnesium Oxide 400 mg PO DAILY #30 tab 02/16/20 02/27/20 Rx Multivit, Therapeutic [Theragran] 1 tab PO DAILY tab 02/16/20 02/27/20 Rx Thiamine HCl [B-1] 100 mg PO DAILY 02/16/20 02/27/20 History guaiFENesin [Mucinex] 1,200 mg PO Q12HR 02/16/20 02/27/20 History predniSONE 40 mg PO QAM-WM #1 tab 02/16/20 02/27/20 Rx Allergies: No Known Drug Allergies Allergy (Verified 02/12/20 23:31) - Follow up Plan Referrals: Ludmila Mccormick MD [Primary Care Provider] - Disposition: HOME Quality - Care Measures CORE MEASURES:: N/A
[2020-03-05] MEDS ORDERED: predniSONE 20 MG TAB PO SCH (08:00)
== END 2020-03-04 15:53 | disposition home or self-care (01) | DRG 189 ==
LOC: T4-B 19:09 → INTOOBSV 19:09 → OBSVTOIN 02-28 10:03
PROVIDERS: ADMIT Family Medicine; ATTEND Internal Medicine
DX: J96.21 Acute and chronic respiratory failure with hypoxia (principal); J44.1 Chronic obstructive pulmonary disease with (acute) exacerbation; Z20.828 Contact with and (suspected) exposure to other viral communicable diseases; G45.9 Transient cerebral ischemic attack, unspecified; I10 Essential (primary) hypertension; G40.909 Epilepsy, unspecified, not intractable, without status epilepticus; F10.10 Alcohol abuse, uncomplicated; F17.210 Nicotine dependence, cigarettes, uncomplicated; Z79.82 Long term (current) use of aspirin; Z79.51 Long term (current) use of inhaled steroids; Z79.899 Other long term (current) drug therapy
CPT/HCPCS: 36415; 71045; 80048; 85025; 87635; J0456; J0696; J2920; J3490; J7050; J7512; U0003

== ENCOUNTER 2020-05-18 16:44 | Inpatient (IN) | payer MEDICARE ==
[2020-05-18 20:09] VITALS: BMI 21.1
[2020-05-18] MEDS ORDERED: Albuterol Sulfate 2.5 mg/3 ml Neb NEB PRN (20:11)
[2020-05-18] MEDS ORDERED: Ondansetron PF 4 MG/2 ML Vial IVP PRN (20:13)
[2020-05-18] MEDS ORDERED: Senokot S 8.6-50 MG TAB PO PRN (20:13)
[2020-05-18] MEDS ORDERED: Ondansetron ODT 4 MG TAB PO PRN (20:13)
[2020-05-18] MEDS ORDERED: Acetaminophen 325 MG TAB PO PRN (20:13)
[2020-05-18] MEDS ORDERED: Calcium Carbonate 500 MG ChewTAB PO PRN (20:13)
[2020-05-18] MEDS ORDERED: Albuterol 200 PUFF (6.7GM INHALER) INH PRN (20:15)
[2020-05-18] MEDS ORDERED: Folic Acid/Vit B Comp W-C PO SCH (20:30)
[2020-05-18] MEDS: Albuterol Sulfate 2.5 mg/3 ml Neb NEB SCH (21:00)
[2020-05-18] MEDS: Guaifenesin DM 100-10/5 ML UDCUP PO PRN (21:03)
[2020-05-18] MEDS: Atorvastatin Calcium 10 MG TAB PO SCH (21:04)
[2020-05-18] MEDS: levETIRAcetam 500 MG TAB PO SCH (21:04)
[2020-05-18] MEDS: methylPREDNISolone Sod Succ 40 MG VIAL IVP SCH (21:05)
[2020-05-18] MEDS: Nicotine 14 MG PATCH TD SCH (21:22)
[2020-05-18 21:48] LABS: Troponin I Less than 0.010 ng/mL (< 0.028)
[2020-05-19] MEDS: methylPREDNISolone Sod Succ 40 MG VIAL IVP SCH ×4 (03:23→20:50)
[2020-05-19] MEDS: Albuterol Sulfate 2.5 mg/3 ml Neb NEB SCH ×6 (05:09→23:25)
[2020-05-19] MEDS: Guaifenesin DM 100-10/5 ML UDCUP PO PRN ×4 (05:45→21:10)
[2020-05-19 06:43] LABS: #Lymphocytes 0.5 thou/uL (1.20-3.40); #Monocytes 0.1 thou/uL (0.11-0.59); %Eosinophils 0.2 % (0.0-10.0); %Lymphocytes 6.4 % (21.0-51.0); %Monocytes 1.3 % (0.0-10.0); %Neutrophils 92.1 % (42.0-75.0); Hemoglobin 12.6 g/dL (14.0-18.0); Mean Corpuscular HGB CONC 34.3 g/dL (32.0-36.0); Mean Corpuscular Hemoglobin 33.4 pg (27.0-31.0); Mean Corpuscular Volume 97.1 fL (78.0-98.0); Platelet Count 202 thou/uL (130-400); RBC Distribution Width 12.4 % (11.5-14.5); Red Blood Cell (RBC) Count 3.78 mill/uL (4.70-6.10); White Blood Cell (WBC) Count 7.6 thou/uL (4.8-10.8)
[2020-05-19 06:51] LABS: Hemoglobin A1c 4.9 % (4.0-6.0)
[2020-05-19 06:55] LABS: Lactic Acid 1.8 mmol/L (0.5-2.2)
[2020-05-19 06:58] LABS: Anion Gap 12 mmol/L (10-20); BUN (Urea Nitrogen) 11 mg/dL (8.4-25.7); Calc. Creatinine Clearance 79 mL/min (70-130); Calcium 8.7 mg/dL (7.8-10.44); Carbon Dioxide 23 mmol/L (23-31); Chloride 106 mmol/L (98-107); Glucose 193 mg/dL (80-115); Sodium 137 mmol/L (136-145)
[2020-05-19] MEDS: Aspirin 325 mg Enteric Coated Tablet PO SCH (08:22)
[2020-05-19] MEDS: levETIRAcetam 500 MG TAB PO SCH ×2 (08:22→20:50)
[2020-05-19] MEDS: Folic Acid 1 MG TAB PO SCH (08:23)
[2020-05-19] MEDS: Thiamine 100 MG TAB PO SCH (08:23)
[2020-05-19] MEDS: Lisinopril 5 MG TAB PO SCH (08:24)
[2020-05-19] MEDS: Enoxaparin Sodium 40 MG/0.4 ML SYRINGE SC SCH (08:24)
[2020-05-19] MEDS: Nicotine 14 MG PATCH TD SCH ×2 (20:50→23:56)
[2020-05-19] MEDS: Atorvastatin Calcium 10 MG TAB PO SCH (20:51)
[2020-05-20] MEDS: Albuterol Sulfate 2.5 mg/3 ml Neb NEB SCH ×6 (02:34→23:18)
[2020-05-20] MEDS: methylPREDNISolone Sod Succ 40 MG VIAL IVP SCH ×3 (03:59→14:54)
[2020-05-20] MEDS: Guaifenesin DM 100-10/5 ML UDCUP PO PRN ×2 (06:34→21:03)
[2020-05-20] MEDS: Aspirin 325 mg Enteric Coated Tablet PO SCH (09:17)
[2020-05-20] MEDS: Enoxaparin Sodium 40 MG/0.4 ML SYRINGE SC SCH (09:17)
[2020-05-20] MEDS: Lisinopril 5 MG TAB PO SCH (09:18)
[2020-05-20] MEDS: Saccharomyces boulardii 250 MG CAP PO SCH (09:18)
[2020-05-20] MEDS: Folic Acid 1 MG TAB PO SCH (09:18)
[2020-05-20] MEDS: Thiamine 100 MG TAB PO SCH (09:18)
[2020-05-20] MEDS: levETIRAcetam 500 MG TAB PO SCH ×2 (09:18→21:04)
[2020-05-20] MEDS: Nicotine 14 MG PATCH TD SCH (21:04)
[2020-05-20] MEDS: Atorvastatin Calcium 10 MG TAB PO SCH (21:04)
[2020-05-21] MEDS: Albuterol Sulfate 2.5 mg/3 ml Neb NEB SCH ×4 (03:23→15:24)
[2020-05-21] MEDS ORDERED: predniSONE 20 MG TAB PO SCH (08:00)
[2020-05-21] MEDS: levETIRAcetam 500 MG TAB PO SCH (08:30)
[2020-05-21] MEDS: Saccharomyces boulardii 250 MG CAP PO SCH (08:31)
[2020-05-21] MEDS: Lisinopril 5 MG TAB PO SCH (08:31)
[2020-05-21] MEDS: Enoxaparin Sodium 40 MG/0.4 ML SYRINGE SC SCH (08:31)
[2020-05-21] MEDS: Folic Acid 1 MG TAB PO SCH (08:31)
[2020-05-21] MEDS: Thiamine 100 MG TAB PO SCH (08:31)
[2020-05-21] MEDS: Aspirin 325 mg Enteric Coated Tablet PO SCH (08:31)
[2020-05-21 12:31] VITALS: TEMP 98.2
[2020-05-21 16:38] VITALS: BP 132/77
== END 2020-05-21 17:33 | disposition home or self-care (01) | DRG 189 ==
LOC: T4-B 18:02 → INTOOBSV 18:02 → OBSVTOIN 05-19 16:53
PROVIDERS: ADMIT Internal Medicine; ATTEND Internal Medicine
DX: J96.01 Acute respiratory failure with hypoxia (principal); J44.1 Chronic obstructive pulmonary disease with (acute) exacerbation; Z20.822 Contact with and (suspected) exposure to COVID-19; G40.909 Epilepsy, unspecified, not intractable, without status epilepticus; F10.20 Alcohol dependence, uncomplicated; F17.210 Nicotine dependence, cigarettes, uncomplicated; E78.5 Hyperlipidemia, unspecified; I25.2 Old myocardial infarction; Z79.51 Long term (current) use of inhaled steroids; Z79.82 Long term (current) use of aspirin; Z79.899 Other long term (current) drug therapy; Z86.73 Personal history of transient ischemic attack (TIA), and cerebral infarction without residual deficits
CPT/HCPCS: 36415; 80048; 83036; 83605; 83735; 85025; 94640; 96365; 96372; 96375; 96376; G0378; J1650; J1956; J2920; J7512; J7611

== ENCOUNTER 2021-10-20 18:05 | Inpatient (IN) | payer MEDICARE ==
[2021-10-20 21:41] VITALS: BMI 21.9
[2021-10-20] MEDS ORDERED: Ondansetron PF 4 MG/2 ML Vial IVP PRN (22:42)
[2021-10-20] MEDS: Guaifenesin DM 100-10/5 ML UDCUP PO PRN (23:08)
[2021-10-20] MEDS: Acetaminophen 325 MG TAB PO PRN (23:10)
[2021-10-20] MEDS ORDERED: Enoxaparin Sodium 40 MG/0.4 ML SYRINGE SC SCH (23:15)
[2021-10-20] MEDS: Nicotine 21 MG PATCH TD SCH (23:17)
[2021-10-21] MEDS: Benzonatate 100 MG CAP PO PRN ×2 (05:13→20:52)
[2021-10-21] MEDS: Guaifenesin DM 100-10/5 ML UDCUP PO PRN ×2 (05:14→20:52)
[2021-10-21 06:09] LABS: #Monocytes 0.4 thou/uL (0.11-0.59); #Neutrophils 10.1 thou/uL (1.40-6.50); %Eosinophils 0.3 % (0.0-10.0); %Lymphocytes 8.7 % (21.0-51.0); %Monocytes 3.1 % (0.0-10.0); %Neutrophils 87.8 % (42.0-75.0); Hemoglobin 12.8 g/dL (14.0-18.0); Mean Corpuscular HGB CONC 34.6 g/dL (32.0-36.0); Mean Corpuscular Hemoglobin 33.6 pg (27.0-31.0); Mean Corpuscular Volume 97.1 fL (78.0-98.0); Mean Platelet Volume 6.7 fL (7.4-10.4); Platelet Count 228 thou/uL (130-400); Red Blood Cell (RBC) Count 3.82 mill/uL (4.70-6.10); White Blood Cell (WBC) Count 11.5 thou/uL (4.8-10.8)
[2021-10-21 06:33] LABS: ALT (SGPT) 8 U/L (8-55); AST (SGOT) 14 U/L (5-34); Alkaline Phosphatase 49 U/L (40-110); Anion Gap 14 mmol/L (10-20); BUN (Urea Nitrogen) 25 mg/dL (8.4-25.7); Bilirubin, Total 0.2 mg/dL (0.2-1.2); Calc. Creatinine Clearance 66 mL/min (70-130); Calcium 9.6 mg/dL (7.8-10.44); Carbon Dioxide 25 mmol/L (23-31); Chloride 101 mmol/L (98-107); Estimated GFR 82; Globulin 3.7 g/dL (2.4-3.5); Glucose 146 mg/dL (80-115); Potassium 3.7 mmol/L (3.5-5.1); Protein, Total 7.7 g/dL (5.8-8.1); Sodium 136 mmol/L (136-145)
[2021-10-21] MEDS: Enoxaparin Sodium 40 MG/0.4 ML SYRINGE SC SCH (08:01)
[2021-10-21] MEDS: levETIRAcetam 500 mg/5 ml Oral Solution PO SCH ×2 (08:02→20:52)
[2021-10-21] MEDS ORDERED: methylPREDNISolone Sod Succ 40 MG VIAL IVP SCH (09:00)
[2021-10-21] MEDS ORDERED: Amoxicillin/Potassium Clav 875 MG TAB PO SCH (12:15)
[2021-10-21] MEDS: Mometasone 200 MCG/Formoterol 5 MCG 120 PUFF INHALER INH SCH (18:41)
[2021-10-21] MEDS: Amoxicillin/Potassium Clav 875 MG TAB PO SCH (20:51)
[2021-10-21] MEDS: Atorvastatin Calcium 10 MG TAB PO SCH (20:51)
[2021-10-21] MEDS: Montelukast Sodium 10 mg Tablet PO SCH (20:52)
[2021-10-21] MEDS: Acetaminophen 325 MG TAB PO PRN (20:52)
[2021-10-22] MEDS: Nicotine 21 MG PATCH TD SCH (01:22)
[2021-10-22] MEDS: Benzonatate 100 MG CAP PO PRN (06:13)
[2021-10-22] MEDS: Acetaminophen 325 MG TAB PO PRN ×2 (06:13→20:35)
[2021-10-22 06:36] LABS: #Eosinphils 0.2 thou/uL (0.0-0.7); #Lymphocytes 2.3 thou/uL (1.20-3.40); #Neutrophils 12.1 thou/uL (1.40-6.50); %Basophils 0.1 % (0.0-1.0); %Eosinophils 1.1 % (0.0-10.0); %Monocytes 6.1 % (0.0-10.0); %Neutrophils 77.7 % (42.0-75.0); Hemoglobin 12.5 g/dL (14.0-18.0); Mean Corpuscular HGB CONC 33.9 g/dL (32.0-36.0); Mean Corpuscular Hemoglobin 33.4 pg (27.0-31.0); Mean Corpuscular Volume 98.6 fL (78.0-98.0); Mean Platelet Volume 6.9 fL (7.4-10.4); Platelet Count 231 thou/uL (130-400); RBC Distribution Width 11.2 % (11.5-14.5); Red Blood Cell (RBC) Count 3.75 mill/uL (4.70-6.10); White Blood Cell (WBC) Count 15.6 thou/uL (4.8-10.8)
[2021-10-22 07:01] LABS: ALT (SGPT) 10 U/L (8-55); AST (SGOT) 18 U/L (5-34); Albumin 3.7 g/dL (3.4-4.8); Alkaline Phosphatase 47 U/L (40-110); Anion Gap 12 mmol/L (10-20); BUN (Urea Nitrogen) 25 mg/dL (8.4-25.7); Bilirubin, Direct 0.2 mg/dL (0.1-0.3); Bilirubin, Total 0.3 mg/dL (0.2-1.2); Calc. Creatinine Clearance 72 mL/min (70-130); Calcium 9.1 mg/dL (7.8-10.44); Carbon Dioxide 25 mmol/L (23-31); Chloride 104 mmol/L (98-107); Estimated GFR 91; Glucose 92 mg/dL (80-115); Magnesium 1.9 mg/dL (1.6-2.6); Potassium 3.7 mmol/L (3.5-5.1); Protein, Total 7.1 g/dL (5.8-8.1); Sodium 137 mmol/L (136-145)
[2021-10-22] MEDS: Mometasone 200 MCG/Formoterol 5 MCG 120 PUFF INHALER INH SCH ×2 (07:29→19:03)
[2021-10-22] MEDS: Benzonatate 100 MG CAP PO SCH ×2 (08:25→16:33)
[2021-10-22] MEDS: levETIRAcetam 500 mg/5 ml Oral Solution PO SCH ×2 (08:25→20:34)
[2021-10-22] MEDS: guaiFENesin ER 600 MG TAB PO SCH ×2 (08:26→20:34)
[2021-10-22] MEDS: Enoxaparin Sodium 40 MG/0.4 ML SYRINGE SC SCH (08:26)
[2021-10-22] MEDS: Lisinopril 5 MG TAB PO SCH (08:26)
[2021-10-22] MEDS: Amoxicillin/Potassium Clav 875 MG TAB PO SCH ×2 (08:26→20:34)
[2021-10-22] MEDS: predniSONE 50 MG TAB PO SCH (08:26)
[2021-10-22] MEDS: Aspirin 325 mg Enteric Coated Tablet PO SCH (08:26)
[2021-10-22] MEDS: Azithromycin 250 MG TAB PO SCH (13:44)
[2021-10-22] MEDS: Guaifenesin DM 100-10/5 ML UDCUP PO PRN (20:34)
[2021-10-22] MEDS: Montelukast Sodium 10 mg Tablet PO SCH (20:34)
[2021-10-22] MEDS: Atorvastatin Calcium 10 MG TAB PO SCH (20:34)
[2021-10-23] MEDS: Nicotine 21 MG PATCH TD SCH (05:10)
[2021-10-23 06:56] LABS: #Eosinphils 0.1 thou/uL (0.0-0.7); #Lymphocytes 2.5 thou/uL (1.20-3.40); #Monocytes 0.9 thou/uL (0.11-0.59); #Neutrophils 6.9 thou/uL (1.40-6.50); %Basophils 0.2 % (0.0-1.0); %Eosinophils 1.1 % (0.0-10.0); %Lymphocytes 24.1 % (21.0-51.0); %Monocytes 8.3 % (0.0-10.0); %Neutrophils 66.4 % (42.0-75.0); Hemoglobin 12.8 g/dL (14.0-18.0); Mean Corpuscular HGB CONC 34.8 g/dL (32.0-36.0); Mean Corpuscular Hemoglobin 34.9 pg (27.0-31.0); Mean Platelet Volume 6.9 fL (7.4-10.4); Platelet Count 208 thou/uL (130-400); RBC Distribution Width 10.9 % (11.5-14.5); Red Blood Cell (RBC) Count 3.68 mill/uL (4.70-6.10); White Blood Cell (WBC) Count 10.4 thou/uL (4.8-10.8)
[2021-10-23 07:22] LABS: Anion Gap 13 mmol/L (10-20); BUN (Urea Nitrogen) 20 mg/dL (8.4-25.7); Calc. Creatinine Clearance 82 mL/min (70-130); Calcium 9.2 mg/dL (7.8-10.44); Carbon Dioxide 22 mmol/L (23-31); Chloride 105 mmol/L (98-107); Estimated GFR 97; Glucose 86 mg/dL (80-115); Magnesium 1.8 mg/dL (1.6-2.6); Potassium 3.6 mmol/L (3.5-5.1); Sodium 136 mmol/L (136-145)
[2021-10-23] MEDS: Mometasone 200 MCG/Formoterol 5 MCG 120 PUFF INHALER INH SCH (07:29)
[2021-10-23 07:50] VITALS: BP 165/89; TEMP 96.8
[2021-10-23] MEDS: Benzonatate 100 MG CAP PO SCH ×3 (07:52→16:25)
[2021-10-23] MEDS: guaiFENesin ER 600 MG TAB PO SCH (08:14)
[2021-10-23] MEDS: predniSONE 50 MG TAB PO SCH (08:14)
[2021-10-23] MEDS: Aspirin 325 mg Enteric Coated Tablet PO SCH (08:14)
[2021-10-23] MEDS: Enoxaparin Sodium 40 MG/0.4 ML SYRINGE SC SCH (08:14)
[2021-10-23] MEDS: Amoxicillin/Potassium Clav 875 MG TAB PO SCH (08:14)
[2021-10-23] MEDS: Lisinopril 5 MG TAB PO SCH (08:14)
[2021-10-23] MEDS: levETIRAcetam 500 mg/5 ml Oral Solution PO SCH (08:18)
[2021-10-23] MEDS: Azithromycin 250 MG TAB PO SCH (14:23)
== END 2021-10-23 17:13 | disposition home or self-care (01) | DRG 193 ==
LOC: INTOOBSV 20:54 → T4-A 20:54 → OBSVTOIN 10-22 12:34
PROVIDERS: ADMIT Internal Medicine; ATTEND Family Medicine
DX: J18.9 Pneumonia, unspecified organism (principal); J96.21 Acute and chronic respiratory failure with hypoxia; J44.1 Chronic obstructive pulmonary disease with (acute) exacerbation; J44.0 Chronic obstructive pulmonary disease with (acute) lower respiratory infection; G40.909 Epilepsy, unspecified, not intractable, without status epilepticus; I10 Essential (primary) hypertension; F17.210 Nicotine dependence, cigarettes, uncomplicated; E78.5 Hyperlipidemia, unspecified; Z79.82 Long term (current) use of aspirin; Z79.51 Long term (current) use of inhaled steroids; Z79.899 Other long term (current) drug therapy; Z86.73 Personal history of transient ischemic attack (TIA), and cerebral infarction without residual deficits; I25.2 Old myocardial infarction
CPT/HCPCS: 36415; 71045; 80048; 80053; 80076; 83735; 85025; 94640; 96372; 96374; G0378; J1650; J2920; J7512; J7620

== ENCOUNTER 2021-12-05 18:15 | Inpatient (IN) | payer MEDICARE ==
[2021-12-05 20:08] VITALS: BMI 22.5
[2021-12-05] MEDS ORDERED: methylPREDNISolone Sod Succ/PF 125 MG/2 ML VIAL IVP SCH (21:15)
[2021-12-05] MEDS ORDERED: Lorazepam 2 MG/ML VIAL IM PRN (21:22)
[2021-12-05] MEDS ORDERED: Lorazepam 1 MG TAB PO PRN (21:22)
[2021-12-05] MEDS ORDERED: Ondansetron ODT 4 MG TAB PO PRN (21:22)
[2021-12-05] MEDS ORDERED: Electrolyte Replacement Protocol 1 EACH FS SCH (21:30)
[2021-12-05] MEDS ORDERED: Multivit, Therapeutic 1 TAB PO SCH (21:45)
[2021-12-05] MEDS ORDERED: Folic Acid 1 MG TAB PO SCH (21:45)
[2021-12-05] MEDS: Thiamine HCl 200 MG/2 ML VIAL SLOW IVP SCH (21:53)
[2021-12-05] MEDS: Lorazepam 1 MG TAB PO SCH (21:55)
[2021-12-05] MEDS: Nicotine 14 MG PATCH TD SCH (21:58)
[2021-12-05] MEDS: cefTRIAXone\\ROCEPHIN 1 GM in Sodium Chloride 0.9% 100 ML IVPB SCH (22:11)
[2021-12-05 22:15] LABS: Magnesium 1.7 mg/dL (1.6-2.6); Phosphorus 4.1 mg/dL (2.3-4.7)
[2021-12-05 22:19] LABS: Troponin I Less than 0.010 ng/mL (< 0.028)
[2021-12-06] MEDS ORDERED: Magnesium 2 GM/50 ML(in water) 2 GM in Premix Bag 1 BAG IVPB SCH (02:00)
[2021-12-06 04:42] LABS: #Eosinphils 0.1 thou/uL (0.0-0.7); #Lymphocytes 0.5 thou/uL (1.20-3.40); #Neutrophils 6.1 thou/uL (1.40-6.50); %Basophils 0.4 % (0.0-1.0); %Lymphocytes 7.8 % (21.0-51.0); %Monocytes 0.6 % (0.0-10.0); %Neutrophils 90.3 % (42.0-75.0); Hemoglobin 13.8 g/dL (14.0-18.0); Mean Corpuscular HGB CONC 33.2 g/dL (32.0-36.0); Mean Corpuscular Hemoglobin 33.5 pg (27.0-31.0); Platelet Count 205 thou/uL (130-400); RBC Distribution Width 11.1 % (11.5-14.5); Red Blood Cell (RBC) Count 4.12 mill/uL (4.70-6.10); White Blood Cell (WBC) Count 6.7 thou/uL (4.8-10.8)
[2021-12-06 05:06] LABS: Anion Gap 13 mmol/L (10-20); BUN (Urea Nitrogen) 13 mg/dL (8.4-25.7); Calc. Creatinine Clearance 70 mL/min (70-130); Carbon Dioxide 23 mmol/L (23-31); Chloride 104 mmol/L (98-107); Potassium 3.8 mmol/L (3.5-5.1); Sodium 136 mmol/L (136-145)
[2021-12-06 05:07] LABS: Calcium 9.5 mg/dL (7.8-10.44); Estimated GFR 89; Glucose 192 mg/dL (80-115)
[2021-12-06 05:08] LABS: Troponin I Less than 0.010 ng/mL (< 0.028)
[2021-12-06] MEDS: Lorazepam 1 MG TAB PO SCH ×4 (06:16→21:49)
[2021-12-06] MEDS ORDERED: methylPREDNISolone Sod Succ 40 MG VIAL IVP SCH ×2 (09:00→12:00)
[2021-12-06] MEDS: Enoxaparin Sodium 40 MG/0.4 ML SYRINGE SC SCH (10:02)
[2021-12-06] MEDS: Famotidine 20 MG TAB PO SCH ×2 (10:03→21:49)
[2021-12-06] MEDS: Folic Acid 1 MG TAB PO SCH (10:03)
[2021-12-06] MEDS: Multivit, Therapeutic 1 TAB PO SCH (10:03)
[2021-12-06 11:01] LABS: Syphilis Antibody Nonreactive (Nonreactive); Syphilis Antibody Index 0.03 S/CO (<1.00 Non-Reactive)
[2021-12-06] MEDS: Guaifenesin DM 100-10/5 ML UDCUP PO SCH ×2 (12:33→17:56)
[2021-12-06] MEDS: methylPREDNISolone Sod Succ/PF 125 MG/2 ML VIAL IVP SCH ×2 (12:34→17:56)
[2021-12-06] MEDS: Benzonatate 100 MG CAP PO SCH ×2 (15:53→21:49)
[2021-12-06] MEDS ORDERED: Lorazepam 1 MG TAB PO PRN (21:22)
[2021-12-06] MEDS: Thiamine HCl 200 MG/2 ML VIAL SLOW IVP SCH (21:49)
[2021-12-06] MEDS: cefTRIAXone\\ROCEPHIN 1 GM in Sodium Chloride 0.9% 100 ML IVPB SCH (21:50)
[2021-12-06] MEDS: Nicotine 14 MG PATCH TD SCH ×2 (21:50→22:01)
[2021-12-07] MEDS: methylPREDNISolone Sod Succ/PF 125 MG/2 ML VIAL IVP SCH ×5 (01:01→23:53)
[2021-12-07] MEDS: Guaifenesin DM 100-10/5 ML UDCUP PO SCH ×5 (01:01→23:54)
[2021-12-07] MEDS: Lorazepam 1 MG TAB PO SCH ×3 (04:33→17:09)
[2021-12-07 04:45] LABS: #Lymphocytes 0.8 thou/uL (1.20-3.40); #Monocytes 0.3 thou/uL (0.11-0.59); #Neutrophils 13.3 thou/uL (1.40-6.50); %Basophils 0.1 % (0.0-1.0); %Eosinophils 0.1 % (0.0-10.0); %Lymphocytes 5.4 % (21.0-51.0); %Monocytes 2.3 % (0.0-10.0); %Neutrophils 92.2 % (42.0-75.0); Hemoglobin 13.5 g/dL (14.0-18.0); Mean Corpuscular HGB CONC 32.3 g/dL (32.0-36.0); Mean Corpuscular Hemoglobin 32.7 pg (27.0-31.0); Mean Platelet Volume 7.3 fL (7.4-10.4); Platelet Count 221 thou/uL (130-400); RBC Distribution Width 11.1 % (11.5-14.5); Red Blood Cell (RBC) Count 4.15 mill/uL (4.70-6.10); White Blood Cell (WBC) Count 14.4 thou/uL (4.8-10.8)
[2021-12-07 05:05] LABS: Anion Gap 9 mmol/L (10-20); BUN (Urea Nitrogen) 19 mg/dL (8.4-25.7); Calc. Creatinine Clearance 73 mL/min (70-130); Carbon Dioxide 26 mmol/L (23-31); Chloride 105 mmol/L (98-107); Potassium 4.2 mmol/L (3.5-5.1); Sodium 136 mmol/L (136-145)
[2021-12-07 05:06] LABS: Calcium 9.5 mg/dL (7.8-10.44); Estimated GFR 92; Glucose 143 mg/dL (80-115)
[2021-12-07] MEDS: Benzonatate 100 MG CAP PO SCH ×3 (08:58→21:24)
[2021-12-07] MEDS: Folic Acid 1 MG TAB PO SCH (08:58)
[2021-12-07] MEDS: Multivit, Therapeutic 1 TAB PO SCH (08:59)
[2021-12-07] MEDS: Famotidine 20 MG TAB PO SCH ×2 (08:59→21:24)
[2021-12-07] MEDS: Enoxaparin Sodium 40 MG/0.4 ML SYRINGE SC SCH (08:59)
[2021-12-07] MEDS ORDERED: Montelukast Sodium 10 mg Tablet PO SCH (21:00)
[2021-12-07] MEDS ORDERED: Atorvastatin Calcium 10 MG TAB PO SCH (21:00)
[2021-12-07] MEDS ORDERED: Lorazepam 1 MG TAB PO PRN (21:22)
[2021-12-07] MEDS: Lorazepam 0.5 MG TAB PO SCH (21:25)
[2021-12-07] MEDS: levETIRAcetam 500 MG TAB PO SCH (21:25)
[2021-12-07] MEDS: cefTRIAXone\\ROCEPHIN 1 GM in Sodium Chloride 0.9% 100 ML IVPB SCH (21:25)
[2021-12-07] MEDS: Thiamine HCl 200 MG/2 ML VIAL SLOW IVP SCH (21:26)
[2021-12-07] MEDS: Nicotine 14 MG PATCH TD SCH (21:26)
[2021-12-08] MEDS: Lorazepam 0.5 MG TAB PO SCH ×2 (04:35→08:41)
[2021-12-08 05:26] LABS: Anion Gap 16 mmol/L (10-20); BUN (Urea Nitrogen) 24 mg/dL (8.4-25.7); Calc. Creatinine Clearance 72 mL/min (70-130); Calcium 9.8 mg/dL (7.8-10.44); Carbon Dioxide 19 mmol/L (23-31); Chloride 103 mmol/L (98-107); Estimated GFR 91; Glucose 105 mg/dL (80-115); Potassium 4.3 mmol/L (3.5-5.1); Sodium 134 mmol/L (136-145)
[2021-12-08] MEDS: methylPREDNISolone Sod Succ/PF 125 MG/2 ML VIAL IVP SCH (05:52)
[2021-12-08] MEDS: Guaifenesin DM 100-10/5 ML UDCUP PO SCH (05:52)
[2021-12-08 06:01] LABS: Band 6 % (5-11); Hemoglobin 15.7 g/dL (14.0-18.0); Lymphocytes 4 % (21-51); MDiff Complete? YES; Macrocytosis SLIGHT = 6-15 cells (100X) (0-5/hpf); Mean Corpuscular HGB CONC 32.4 g/dL (32.0-36.0); Mean Corpuscular Hemoglobin 33.3 pg (27.0-31.0); Mean Platelet Volume 7.4 fL (7.4-10.4); Neutrophil 90 % (42-75); Ovalocytes SLIGHT = 2-5 cells (100X) (0-1/hpf); Platelet Count 291 thou/uL (130-400); Platelet Morphology Comment Appears Adequate; RBC Distribution Width 11.2 % (11.5-14.5); White Blood Cell (WBC) Count 22.4 thou/uL (4.8-10.8)
[2021-12-08 08:26] VITALS: BP 155/70; TEMP 97.3
[2021-12-08] MEDS: Folic Acid 1 MG TAB PO SCH (08:41)
[2021-12-08] MEDS: Multivit, Therapeutic 1 TAB PO SCH (08:41)
[2021-12-08] MEDS: Famotidine 20 MG TAB PO SCH (08:41)
[2021-12-08] MEDS: Benzonatate 100 MG CAP PO SCH (08:41)
[2021-12-08] MEDS: levETIRAcetam 500 MG TAB PO SCH (08:41)
[2021-12-08] MEDS: Enoxaparin Sodium 40 MG/0.4 ML SYRINGE SC SCH (08:42)
[2021-12-08] MEDS ORDERED: Aspirin 325 mg Enteric Coated Tablet PO SCH (09:00)
[2021-12-08] MEDS ORDERED: Lisinopril 2.5 MG TAB PO SCH (09:00)
[2021-12-08] MEDS ORDERED: Thiamine 100 MG TAB PO SCH (21:00)
[2021-12-08] MEDS ORDERED: Lorazepam 0.5 MG TAB PO PRN (21:22)
== END 2021-12-08 10:09 | disposition home or self-care (01) | DRG 189 ==
LOC: 2SW 19:40 → OBSVTOIN 12-07 14:43
PROVIDERS: ADMIT Family Medicine; ATTEND Hospitalist
DX: J96.01 Acute respiratory failure with hypoxia (principal); J44.1 Chronic obstructive pulmonary disease with (acute) exacerbation; I48.91 Unspecified atrial fibrillation; Z20.822 Contact with and (suspected) exposure to COVID-19; I25.10 Atherosclerotic heart disease of native coronary artery without angina pectoris; E78.5 Hyperlipidemia, unspecified; G40.909 Epilepsy, unspecified, not intractable, without status epilepticus; F17.210 Nicotine dependence, cigarettes, uncomplicated; F10.20 Alcohol dependence, uncomplicated; I11.9 Hypertensive heart disease without heart failure; I25.2 Old myocardial infarction; Z86.73 Personal history of transient ischemic attack (TIA), and cerebral infarction without residual deficits; Z79.82 Long term (current) use of aspirin; Z79.51 Long term (current) use of inhaled steroids; Z79.52 Long term (current) use of systemic steroids; Z79.899 Other long term (current) drug therapy
CPT/HCPCS: 36415; 71045; 80048; 82248; 83735; 84100; 84484; 85025; 86780; 87070; 87205; 87633; 87807; 93306; 94640; J0696; J1650; J2930; J3411; J3475; J3490; J7620

== ENCOUNTER 2023-04-18 16:53 | Inpatient (IN) | payer MEDICARE, SELFPAY ==
[2023-04-18] MEDS ORDERED: Ipratropium/Albuterol 3 ML NEB ONE (17:08)
[2023-04-18] MEDS ORDERED: Azithromycin 500 MG VIAL ONE (18:23)
[2023-04-18] MEDS ORDERED: guaiFENesin ER 600 MG TAB ONE (18:23)
[2023-04-18] MEDS ORDERED: cefTRIAXone (ROCEPHIN) 2 GM VIAL ONE (18:23)
[2023-04-18] MEDS ORDERED: Benzonatate 100 MG CAP ONE (18:23)
[2023-04-18] MEDS ORDERED: Albuterol 2.5 MG (0.5 mL) NEB ONE (19:07)
[2023-04-18] MEDS ORDERED: Acetaminophen 325 MG TAB PO PRN (20:57)
[2023-04-18] MEDS ORDERED: Ondansetron PF 4 MG/2 ML Vial IVP PRN (20:57)
[2023-04-18] MEDS ORDERED: Ipratropium/Albuterol 3 ML NEB EZPAP PRN (21:00)
[2023-04-18 21:24] LABS: Lactic Acid 3.3 mmol/L (0.5-2.2)
[2023-04-18 21:31] LABS: Actual Bicarbonate (HCO3a) 21.7 mEq/L (22-28); Analyzer IN Cardio ER; Base Excess (BEa) -3.8 mEq/L (-2.0 to +3.0); Calcium, Ionized (arterial) 1.14 mmol/L (1.12-1.30); Carboxyhemoglobin (COHb) 0.2 gm% (0.0-3.0); Hematocrit-ABG 36 % (42.0-52.0); Hemoglobin (Hb) 12.1 g/dL (14.0-18.0); O2 Tension (PaO2), arterial 88.1 mmHg (> 80.0); Potassium - ABG Lab 3.97 mmol/L (3.70-5.30); pH, Arterial 7.341 (7.35-7.45)
[2023-04-18 21:33] LABS: Puncture Site LR
[2023-04-18] MEDS: Ipratropium/Albuterol 3 ML NEB NEB SCH (22:34)
[2023-04-18] MEDS: Lidocaine 2% Viscous 100 ML BOTTLE SSW SCH (22:56)
[2023-04-18] MEDS ORDERED: Albuterol 2.5 MG (3 mL) NEB NEB PRN (23:00)
[2023-04-18] MEDS ORDERED: Morphine 4 MG/ML VIAL ONE (23:32)
[2023-04-18] MEDS ORDERED: methylPREDNISolone Sod Succ 40 MG VIAL ONE (23:32)
[2023-04-18] MEDS: Morphine 4 MG/ML VIAL SLOW IVP SCH (23:42)
[2023-04-18] MEDS: methylPREDNISolone Sod Succ 40 MG VIAL IVP SCH (23:45)
[2023-04-19] MEDS: Sodium Chloride 0.9% 1,000 ML IV SCH (00:13)
[2023-04-19] MEDS: levETIRAcetam 500 mg/5 ml Oral Solution PO SCH ×3 (01:45→09:15)
[2023-04-19] MEDS ORDERED: methylPREDNISolone Sod Succ 40 MG VIAL ONE ×2 (03:22→08:40)
[2023-04-19 03:56] LABS: #Monocytes 0.3 thou/uL (0.11-0.59); #Neutrophils 12.5 thou/uL (1.40-6.50); %Basophils 0.1 % (0.0-1.0); %Lymphocytes 3.3 % (21.0-51.0); %Monocytes 2.4 % (0.0-10.0); %Neutrophils 93.8 % (42.0-75.0); Hematocrit 33.7 % (42.0-52.0); Hemoglobin 11.3 g/dL (14.0-18.0); Mean Corpuscular HGB CONC 33.5 g/dL (32.0-36.0); Mean Corpuscular Hemoglobin 31.2 pg (27.0-31.0); Mean Corpuscular Volume 93.1 fl (78.0-98.0); Mean Platelet Volume 9.3 fL (7.4-10.4); Platelet Count 182 10x3/uL (130-400); RBC Distribution Width 12.6 % (11.5-14.5); Red Blood Cell (RBC) Count 3.62 mill/uL (4.70-6.10); White Blood Cell (WBC) Count 13.4 10x3/uL (4.8-10.8)
[2023-04-19 04:12] LABS: Lactic Acid 1.5 mmol/L (0.5-2.2)
[2023-04-19 04:16] LABS: Anion Gap 12 mmol/L (10-20); BUN (Urea Nitrogen) 19 mg/dL (8.4-25.7); Calc. Creatinine Clearance 0 mL/min (70-130); Calcium 8.1 mg/dL (7.8-10.44); Carbon Dioxide 21 mmol/L (23-31); Chloride 104 mmol/L (98-107); Estimated GFR 94; Glucose 139 mg/dL (80-115); Magnesium 2.2 mg/dL (1.6-2.6); Potassium 4.4 mmol/L (3.5-5.1); Sodium 133 mmol/L (136-145)
[2023-04-19 04:18] VITALS: BMI 23.9
[2023-04-19] MEDS: Mometasone 200 MCG/Formoterol 5 MCG 120 PUFF INHALER INH SCH (06:37)
[2023-04-19] MEDS ORDERED: guaiFENesin ER 600 MG TAB ONE (08:39)
[2023-04-19] MEDS ORDERED: Oseltamivir 75 MG CAP ONE (08:39)
[2023-04-19] MEDS ORDERED: levETIRAcetam 500 MG TAB ONE (08:40)
[2023-04-19] MEDS ORDERED: Enoxaparin 40 MG (0.4 mL) SYRINGE ONE (08:40)
[2023-04-19] MEDS ORDERED: Pantoprazole 40 MG VIAL ONE (08:40)
[2023-04-19] MEDS: Oseltamivir 75 MG CAP PO SCH (09:15)
[2023-04-19] MEDS: guaiFENesin/DM ER PO SCH (09:15)
[2023-04-19] MEDS: Pantoprazole 40 MG VIAL IVP SCH (09:15)
[2023-04-19] MEDS: Enoxaparin 40 MG (0.4 mL) SYRINGE SC SCH (09:16)
[2023-04-19] MEDS: cefTRIAXone\\ROCEPHIN 1 GM in Sodium Chloride 0.9% 100 ML IVPB SCH (18:22)
[2023-04-19] MEDS: Azithromycin 500 MG in Sodium Chloride 0.9% 250 ML 250 ML IVPB SCH (22:30)
[2023-04-20] MEDS ORDERED: Ipratropium/Albuterol 3 ML NEB NEB PRN (08:53)
[2023-04-20] MEDS ORDERED: Guaifenesin DM 100-10/5 ML UDCUP PO PRN (08:53)
[2023-04-20] MEDS ORDERED: Benzonatate 100 MG CAP PO SCH (09:00)
[2023-04-20] MEDS ORDERED: LEVETIRACETAM 750 MG PO SCH (09:00)
[2023-04-20] MEDS: predniSONE 20 MG TAB PO SCH (09:29)
[2023-04-20] MEDS: Lisinopril 5 MG TAB PO SCH (09:31)
[2023-04-20] MEDS: Aspirin 81 mg Enteric Coated Tablet PO SCH (09:31)
[2023-04-20 17:54] LABS: #Monocytes 0.5 thou/uL (0.11-0.59); #Neutrophils 12.4 thou/uL (1.40-6.50); %Basophils 0.1 % (0.0-1.0); %Lymphocytes 3.8 % (21.0-51.0); %Monocytes 3.6 % (0.0-10.0); %Neutrophils 91.7 % (42.0-75.0); Hematocrit 34.4 % (42.0-52.0); Hemoglobin 11.6 g/dL (14.0-18.0); Mean Corpuscular HGB CONC 33.7 g/dL (32.0-36.0); Mean Corpuscular Hemoglobin 31.9 pg (27.0-31.0); Mean Corpuscular Volume 94.5 fl (78.0-98.0); Mean Platelet Volume 9.4 fL (7.4-10.4); Platelet Count 193 10x3/uL (130-400); RBC Distribution Width 12.6 % (11.5-14.5); Red Blood Cell (RBC) Count 3.64 mill/uL (4.70-6.10); White Blood Cell (WBC) Count 13.5 10x3/uL (4.8-10.8)
[2023-04-20 18:22] LABS: Anion Gap 11 mmol/L (10-20); BUN (Urea Nitrogen) 20 mg/dL (8.4-25.7); Calc. Creatinine Clearance 79 mL/min (70-130); Calcium 8.3 mg/dL (7.8-10.44); Carbon Dioxide 25 mmol/L (23-31); Chloride 106 mmol/L (98-107); Estimated GFR 93; Glucose 135 mg/dL (80-115); Sodium 138 mmol/L (136-145)
[2023-04-20] MEDS: Montelukast Sodium 10 mg Tablet PO SCH (20:32)
[2023-04-20] MEDS: Benzonatate 100 MG CAP PO PRN (20:32)
[2023-04-20] MEDS: Atorvastatin Calcium 40 MG TAB PO SCH (20:32)
[2023-04-21 04:56] LABS: #Monocytes 0.6 thou/uL (0.11-0.59); #Neutrophils 8.6 thou/uL (1.40-6.50); %Basophils 0.1 % (0.0-1.0); %Lymphocytes 8.5 % (21.0-51.0); %Monocytes 5.6 % (0.0-10.0); Hematocrit 34.5 % (42.0-52.0); Hemoglobin 11.5 g/dL (14.0-18.0); Mean Corpuscular HGB CONC 33.3 g/dL (32.0-36.0); Mean Corpuscular Hemoglobin 31.6 pg (27.0-31.0); Mean Corpuscular Volume 94.8 fl (78.0-98.0); Mean Platelet Volume 9.5 fL (7.4-10.4); Platelet Count 193 10x3/uL (130-400); RBC Distribution Width 12.6 % (11.5-14.5); Red Blood Cell (RBC) Count 3.64 mill/uL (4.70-6.10); White Blood Cell (WBC) Count 10.1 10x3/uL (4.8-10.8)
[2023-04-21 05:14] LABS: Anion Gap 8 mmol/L (10-20); BUN (Urea Nitrogen) 20 mg/dL (8.4-25.7); Calc. Creatinine Clearance 89 mL/min (70-130); Calcium 8.6 mg/dL (7.8-10.44); Carbon Dioxide 29 mmol/L (23-31); Chloride 105 mmol/L (98-107); Estimated GFR 97; Glucose 120 mg/dL (80-115); Magnesium 1.9 mg/dL (1.6-2.6); Sodium 138 mmol/L (136-145)
[2023-04-21] MEDS: Aspirin 81 mg Enteric Coated Tablet PO SCH (10:08)
[2023-04-21] MEDS: predniSONE 20 MG TAB PO SCH (10:08)
[2023-04-21] MEDS: Lisinopril 5 MG TAB PO SCH (10:09)
[2023-04-22 04:45] LABS: #Monocytes 0.5 thou/uL (0.11-0.59); #Neutrophils 3.5 thou/uL (1.40-6.50); %Basophils 0.2 % (0.0-1.0); %Lymphocytes 19.8 % (21.0-51.0); %Neutrophils 69.8 % (42.0-75.0); Hematocrit 34.3 % (42.0-52.0); Hemoglobin 11.8 g/dL (14.0-18.0); Mean Corpuscular HGB CONC 34.4 g/dL (32.0-36.0); Mean Corpuscular Hemoglobin 31.9 pg (27.0-31.0); Mean Corpuscular Volume 92.7 fl (78.0-98.0); Mean Platelet Volume 9.4 fL (7.4-10.4); Platelet Count 184 10x3/uL (130-400); RBC Distribution Width 12.3 % (11.5-14.5)
[2023-04-22 05:16] LABS: Anion Gap 9 mmol/L (10-20); BUN (Urea Nitrogen) 17 mg/dL (8.4-25.7); Calc. Creatinine Clearance 94 mL/min (70-130); Calcium 8.6 mg/dL (7.8-10.44); Carbon Dioxide 28 mmol/L (23-31); Chloride 104 mmol/L (98-107); Estimated GFR 98; Glucose 105 mg/dL (80-115); Magnesium 1.8 mg/dL (1.6-2.6); Potassium 3.8 mmol/L (3.5-5.1); Sodium 137 mmol/L (136-145)
[2023-04-22] MEDS: Ipratropium/Albuterol 3 ML NEB NEB SCH (18:44)
[2023-04-22] MEDS: FLU VACC QS2023(65UP)/MF59C/PF 60 MCG/0.5 ML SYRINGE IM ONE (18:48)
[2023-04-23 06:39] LABS: #Monocytes 0.7 thou/uL (0.11-0.59); #Neutrophils 3.7 thou/uL (1.40-6.50); %Basophils 0.2 % (0.0-1.0); %Eosinophils 0.2 % (0.0-10.0); %Lymphocytes 27.1 % (21.0-51.0); %Monocytes 11.3 % (0.0-10.0); %Neutrophils 60.1 % (42.0-75.0); Hematocrit 37.5 % (42.0-52.0); Hemoglobin 12.7 g/dL (14.0-18.0); Mean Corpuscular HGB CONC 33.9 g/dL (32.0-36.0); Mean Corpuscular Hemoglobin 31.1 pg (27.0-31.0); Mean Corpuscular Volume 91.7 fl (78.0-98.0); Mean Platelet Volume 9.2 fL (7.4-10.4); Platelet Count 198 10x3/uL (130-400); Red Blood Cell (RBC) Count 4.09 mill/uL (4.70-6.10); White Blood Cell (WBC) Count 6.2 10x3/uL (4.8-10.8)
[2023-04-23 07:15] LABS: BUN (Urea Nitrogen) 15 mg/dL (8.4-25.7); Calc. Creatinine Clearance 91 mL/min (70-130); Calcium 8.7 mg/dL (7.8-10.44); Carbon Dioxide 29 mmol/L (23-31); Chloride 101 mmol/L (98-107); Estimated GFR 98; Glucose 87 mg/dL (80-115); Potassium 3.5 mmol/L (3.5-5.1); Sodium 136 mmol/L (136-145)
[2023-04-23 07:31] LABS: Anion Gap 10 mmol/L (10-20)
[2023-04-23 16:51] VITALS: BP 150/70; TEMP 98.1
== END 2023-04-23 16:52 | disposition home or self-care (01) | DRG 193 ==
LOC: ERS 16:53 → ERHOLD 20:57 → 2NO 04-19 14:15
PROVIDERS: ADMIT Internal Medicine; ATTEND Internal Medicine
PROC: 4A033R1 Measurement of Arterial Saturation, Peripheral, Percutaneous Approach (ICD-10-PCS; principal; 2023-04-18)
DX: J10.1 Influenza due to other identified influenza virus with other respiratory manifestations (principal); J96.01 Acute respiratory failure with hypoxia; J44.1 Chronic obstructive pulmonary disease with (acute) exacerbation; E87.20 Acidosis, unspecified; G40.909 Epilepsy, unspecified, not intractable, without status epilepticus; E78.00 Pure hypercholesterolemia, unspecified; I25.10 Atherosclerotic heart disease of native coronary artery without angina pectoris; I10 Essential (primary) hypertension; F17.210 Nicotine dependence, cigarettes, uncomplicated; E83.42 Hypomagnesemia; E78.2 Mixed hyperlipidemia; Z86.73 Personal history of transient ischemic attack (TIA), and cerebral infarction without residual deficits; I25.2 Old myocardial infarction; Z79.82 Long term (current) use of aspirin; Z79.899 Other long term (current) drug therapy
CPT/HCPCS: 36415; 80048; 82805; 83605; 83735; 83880; 85025; 94640; 94644; 94660; 96365; 96367; C9113; J0456; J0696; J1650; J2270; J2920; J3490; J7050; J7512; J7611; J7620

== ENCOUNTER 2024-11-04 16:00 | Inpatient (IN) | payer MEDICARE ==
[~2024-11-04 16:00] MED LIST changes: -Iopamidol-370 76% 500 ML 1 ML ONE; +Iopamidol-370 76% 500 ML MDV (1 ML CHARGE) ONE
[2024-11-04] MEDS ORDERED: Magnesium 2 GM/50 ML BAG (IN WATER) ONE (17:03)
[2024-11-04] MEDS ORDERED: predniSONE 20 MG TAB ONE (17:03)
[2024-11-04] MEDS ORDERED: Pantoprazole 40 MG VIAL ONE (17:04)
[2024-11-04] MEDS ORDERED: cefTRIAXone (ROCEPHIN) 2 GM VIAL ONE (17:04)
[2024-11-04] MEDS ORDERED: Azithromycin 500 MG VIAL ONE (17:04)
[2024-11-04] MEDS ORDERED: cefTRIAXone (ROCEPHIN) 1 GM VIAL ONE (17:12)
[2024-11-04 17:43] LABS: #Basophils Less than 0.03 10x3/uL (0.0-0.2); #Eosinophils 0.05 10x3/uL (0.0-0.7); #Monocytes 0.16 10x3/uL (0.11-0.59); #Neutrophils 7.42 10x3/uL (1.40-6.50); %Basophils 0.2 % (0.0-1.0); %Eosinophils 0.6 % (0.0-10.0); %Lymphocytes 5.1 % (21.0-51.0); %Monocytes 2.0 % (0.0-10.0); %Neutrophils 91.7 % (42.0-75.0); Hematocrit 37.0 % (42.0-52.0); Hemoglobin 12.5 g/dL (14.0-18.0); Mean Corpuscular Hemoglobin 31.5 pg (27.0-31.0); Mean Corpuscular Volume 93.2 fL (78.0-98.0); Platelet Count 172 10x3/uL (130-400); Red Blood Cell (RBC) Count 3.97 mill/uL (4.70-6.10); White Blood Cell (WBC) Count 8.09 10x3/uL (4.8-10.8)
[2024-11-04 18:01] LABS: Lipase 35.0 U/L (8-78)
[2024-11-04 18:02] LABS: CRP, High Sensitivity at Bryan 1.78 mg/dL (< or = 0.5)
[2024-11-04 18:04] LABS: ALT (SGPT) 7 U/L (Less than 45); AST (SGOT) 14 U/L (11-34); Albumin 3.6 g/dL (3.1-4.5); Alkaline Phosphatase 66 U/L (40-110); Anion Gap 13 mmol/L (10-20); BUN (Urea Nitrogen) 15 mg/dL (8.4-25.7); Bilirubin, Total 0.3 mg/dL (0.3-1.2); Calc. Creatinine Clearance 0 mL/min (70-130); Calcium 9.1 mg/dL (7.8-10.44); Carbon Dioxide 24 mmol/L (23-31); Chloride 109 mmol/L (98-107); Globulin 2.8 g/dL (2.4-3.5); Glucose 148 mg/dL (80-115); Potassium 4.0 mmol/L (3.5-5.1); Sodium 142 mmol/L (136-145)
[2024-11-04 20:28] LABS: Bacteria/HPF None Seen HPF (None Seen); CAUTI Indications for Culture Alt mental st,lethar; Glucose, Urine (Dipstick) Normal (Negative); Leukocyte Negative Leu/uL (Negative); Protein, Urine (Dipstick) Negative (Neg-Trace); RBC/HPF 0-3 HPF (0-3); WBC/HPF 0-3 HPF (0-3)
[2024-11-04] MEDS ORDERED: Ondansetron PF 4 MG/2 ML Vial IVP PRN (20:34)
[2024-11-04] MEDS ORDERED: Albuterol 2.5 MG (3 mL) NEB NEB PRN (20:35)
[2024-11-04 20:41] LABS: Specific Gravity, Urine Greater than 1.015 (1.002-1.036); Urine Culture Reflex No No
[2024-11-04] MEDS: guaiFENesin/DM ER PO SCH (21:23)
[2024-11-04] MEDS: levETIRAcetam 500 MG TAB PO SCH (21:23)
[2024-11-04 22:08] VITALS: BMI 19.3
[2024-11-05 06:44] LABS: #Basophils Less than 0.03 10x3/uL (0.0-0.2); #Eosinophils Less than 0.03 10x3/uL (0.0-0.7); #Monocytes 0.13 10x3/uL (0.11-0.59); #Neutrophils 8.14 10x3/uL (1.40-6.50); %Basophils 0.1 % (0.0-1.0); %Eosinophils 0.0 % (0.0-10.0); %Lymphocytes 5.4 % (21.0-51.0); %Monocytes 1.5 % (0.0-10.0); %Neutrophils 92.2 % (42.0-75.0); Hematocrit 35.2 % (42.0-52.0); Hemoglobin 11.6 g/dL (14.0-18.0); Mean Corpuscular Hemoglobin 31.4 pg (27.0-31.0); Mean Corpuscular Volume 95.4 fL (78.0-98.0); Platelet Count 188 10x3/uL (130-400); Red Blood Cell (RBC) Count 3.69 mill/uL (4.70-6.10); White Blood Cell (WBC) Count 8.83 10x3/uL (4.8-10.8)
[2024-11-05 07:02] LABS: Anion Gap 13 mmol/L (10-20); BUN (Urea Nitrogen) 16 mg/dL (8.4-25.7); Calc. Creatinine Clearance 79 mL/min (70-130); Calcium 9.0 mg/dL (7.8-10.44); Carbon Dioxide 22 mmol/L (23-31); Chloride 107 mmol/L (98-107); Glucose 133 mg/dL (80-115); Magnesium 1.9 mg/dL (1.6-2.6); Potassium 3.6 mmol/L (3.5-5.1); Sodium 138 mmol/L (136-145)
[2024-11-05] MEDS: Mometasone 200 MCG/Formoterol 5 MCG 120 PUFF INHALER INH SCH (07:56)
[2024-11-05] MEDS: Gabapentin 300 MG CAP PO SCH (08:38)
[2024-11-05] MEDS: Pantoprazole 40 MG DR.TAB PO SCH (08:38)
[2024-11-05] MEDS: levETIRAcetam 500 MG TAB PO SCH (08:38)
[2024-11-05] MEDS: Aspirin 81 mg Enteric Coated Tablet PO SCH (08:38)
[2024-11-05] MEDS: Enoxaparin 40 MG (0.4 mL) SYRINGE SC SCH (08:39)
[2024-11-05] MEDS: Lisinopril 20 MG TAB PO SCH (08:39)
[2024-11-05] MEDS: Acetaminophen 325 MG TAB PO PRN (14:23)
[2024-11-05] MEDS: cefTRIAXone\\ROCEPHIN 1 GM in Sodium Chloride 0.9% 100 ML IVPB SCH (17:10)
[2024-11-05] MEDS: Azithromycin 500 MG in Sodium Chloride 0.9% 250 ML 250 ML IVPB SCH (19:11)
[2024-11-06 05:09] LABS: #Basophils Less than 0.03 10x3/uL (0.0-0.2); #Eosinophils Less than 0.03 10x3/uL (0.0-0.7); #Monocytes 0.36 10x3/uL (0.11-0.59); #Neutrophils 14.85 10x3/uL (1.40-6.50); %Basophils 0.1 % (0.0-1.0); %Eosinophils 0.0 % (0.0-10.0); %Lymphocytes 3.0 % (21.0-51.0); %Monocytes 2.3 % (0.0-10.0); %Neutrophils 93.3 % (42.0-75.0); Hematocrit 33.0 % (42.0-52.0); Hemoglobin 10.9 g/dL (14.0-18.0); Mean Corpuscular Hemoglobin 31.9 pg (27.0-31.0); Mean Corpuscular Volume 96.5 fL (78.0-98.0); Platelet Count 192 10x3/uL (130-400); Red Blood Cell (RBC) Count 3.42 mill/uL (4.70-6.10); White Blood Cell (WBC) Count 15.90 10x3/uL (4.8-10.8)
[2024-11-06 05:30] LABS: Anion Gap 7 mmol/L (10-20); BUN (Urea Nitrogen) 23 mg/dL (8.4-25.7); Calc. Creatinine Clearance 68 mL/min (70-130); Calcium 8.7 mg/dL (7.8-10.44); Carbon Dioxide 21 mmol/L (23-31); Chloride 111 mmol/L (98-107); Glucose 155 mg/dL (80-115); Potassium 4.0 mmol/L (3.5-5.1); Sodium 135 mmol/L (136-145)
[2024-11-06] MEDS: Azithromycin 500 MG in Sodium Chloride 0.9% 250 ML 250 ML IVPB SCH (21:41)
[2024-11-07] MEDS: Benzonatate 100 MG CAP PO SCH (14:01)
[2024-11-08 06:17] LABS: Anion Gap 9 mmol/L (10-20); BUN (Urea Nitrogen) 27 mg/dL (8.4-25.7); Calc. Creatinine Clearance 62 mL/min (70-130); Calcium 8.9 mg/dL (7.8-10.44); Carbon Dioxide 27 mmol/L (23-31); Chloride 104 mmol/L (98-107); Glucose 124 mg/dL (80-115); Potassium 4.2 mmol/L (3.5-5.1); Sodium 136 mmol/L (136-145)
[2024-11-08 07:22] LABS: #Basophils Less than 0.03 10x3/uL (0.0-0.2); #Eosinophils Less than 0.03 10x3/uL (0.0-0.7); #Monocytes 0.27 10x3/uL (0.11-0.59); #Neutrophils 7.34 10x3/uL (1.40-6.50); %Basophils 0.1 % (0.0-1.0); %Eosinophils 0.1 % (0.0-10.0); %Lymphocytes 5.8 % (21.0-51.0); %Monocytes 3.3 % (0.0-10.0); %Neutrophils 89.8 % (42.0-75.0); Hematocrit 35.9 % (42.0-52.0); Hemoglobin 11.9 g/dL (14.0-18.0); Mean Corpuscular Hemoglobin 31.7 pg (27.0-31.0); Mean Corpuscular Volume 95.7 fL (78.0-98.0); Platelet Count 204 10x3/uL (130-400); Red Blood Cell (RBC) Count 3.75 mill/uL (4.70-6.10); White Blood Cell (WBC) Count 8.17 10x3/uL (4.8-10.8)
[2024-11-09] MEDS: GUAIFENESIN SF SOLN 200 MG/10 ML UDCUP PO PRN (08:50)
[2024-11-09] MEDS: Fioricet 325/50/40 mg Tablet PO SCH (12:35)
[2024-11-10] MEDS ORDERED: Methocarbamol 500 MG TAB PO PRN (11:51)
[2024-11-10 16:29] VITALS: BMI 19.3
[2024-11-11 05:53] LABS: #Basophils Less than 0.03 10x3/uL (0.0-0.2); #Eosinophils Less than 0.03 10x3/uL (0.0-0.7); #Monocytes 0.87 10x3/uL (0.11-0.59); #Neutrophils 5.80 10x3/uL (1.40-6.50); %Basophils 0.3 % (0.0-1.0); %Eosinophils 0.0 % (0.0-10.0); %Lymphocytes 9.9 % (21.0-51.0); %Monocytes 11.3 % (0.0-10.0); %Neutrophils 75.1 % (42.0-75.0); Hematocrit 37.1 % (42.0-52.0); Hemoglobin 12.6 g/dL (14.0-18.0); Mean Corpuscular Hemoglobin 32.1 pg (27.0-31.0); Mean Corpuscular Volume 94.6 fL (78.0-98.0); Platelet Count 237 10x3/uL (130-400); Red Blood Cell (RBC) Count 3.92 mill/uL (4.70-6.10); White Blood Cell (WBC) Count 7.71 10x3/uL (4.8-10.8)
[2024-11-11 06:07] LABS: ALT (SGPT) 27 U/L (Less than 45); AST (SGOT) 26 U/L (11-34); Albumin 3.0 g/dL (3.1-4.5); Alkaline Phosphatase 49 U/L (40-110); Anion Gap 13 mmol/L (10-20); BUN (Urea Nitrogen) 23 mg/dL (8.4-25.7); Bilirubin, Total 0.2 mg/dL (0.3-1.2); Calc. Creatinine Clearance 64 mL/min (70-130); Calcium 9.2 mg/dL (7.8-10.44); Carbon Dioxide 28 mmol/L (23-31); Chloride 103 mmol/L (98-107); Globulin 2.7 g/dL (2.4-3.5); Glucose 107 mg/dL (80-115); Magnesium 2.1 mg/dL (1.6-2.6); Potassium 4.5 mmol/L (3.5-5.1); Sodium 139 mmol/L (136-145)
[2024-11-11 08:58] VITALS: BP 130/65
[2024-11-11 09:01] VITALS: TEMP 98
== END 2024-11-11 14:32 | disposition home or self-care (01) | DRG 189 ==
LOC: ERS 16:00 → OBS 19:20 → SURG B 11-07 18:07
PROVIDERS: ADMIT Internal Medicine; ATTEND Internal Medicine
DX: J96.21 Acute and chronic respiratory failure with hypoxia (principal); E43 Unspecified severe protein-calorie malnutrition; J44.1 Chronic obstructive pulmonary disease with (acute) exacerbation; Z68.1 Body mass index [BMI] 19.9 or less, adult; T17.890A Other foreign object in other parts of respiratory tract causing asphyxiation, initial encounter; E78.5 Hyperlipidemia, unspecified; I10 Essential (primary) hypertension; F10.10 Alcohol abuse, uncomplicated; F17.210 Nicotine dependence, cigarettes, uncomplicated; G43.909 Migraine, unspecified, not intractable, without status migrainosus; D64.9 Anemia, unspecified; I25.2 Old myocardial infarction; Z86.73 Personal history of transient ischemic attack (TIA), and cerebral infarction without residual deficits; Z98.890 Other specified postprocedural states; Z79.899 Other long term (current) drug therapy; Z79.51 Long term (current) use of inhaled steroids
CPT/HCPCS: 36415; 71045; 71260; 74177; 80048; 80053; 81001; 83690; 83735; 84484; 85025; 86141; 87040; 87400; 87426; 93005; 94640; 94664; 96365; 96367; 96375; J0456; J0696; J1650; J2470; J2919; J3475; J7050; J7512; J7620; Q9967